=== PATIENT | male | born 1960 | race African-American/Black ===

== ENCOUNTER 2021-01-19 22:09 | Emergency (ER) | payer MEDICAID, OTHER ==
[~2021-01-19] VITALS: Ht 182.9 cm; Wt 82.0 kg
[2021-01-19] MEDS ORDERED: LEVETIRACETAM 1000MG PREMIX 100 ML IV ONE (22:30)
[2021-01-19 22:58] LABS: BASOPHILS % 0.7 % (0.0-2.0); EOSINOPHILS % 0.8 % (0.0-5.0); HEMATOCRIT. 38.3 % (42.0-52.0); HEMOGLOBIN. 12.9 g/dL (14.0-18.0); LYMPHOCYTES % 22.3 % (20.0-50.0); MEAN CORPUSCULAR HEMOGLOBIN 34.3 pg (28.0-32.0); MEAN CORPUSCULAR VOLUME 102.1 fL (80.0-94.0); MEAN PLATELET VOLUME 9.2 fl (7.4-10.4); MONOCYTES % 13.7 % (2.0-8.0); NEUTROPHILS % 62.5 % (40.0-76.0); PLATELET 88 x1000/uL (130-400); RED BLOOD CELL COUNT 3.75 mill/uL (4.7-6.1); RED CELL DISTRIBUTION WIDTH 18.6 % (11.6-14.6)
[2021-01-19 23:04] LABS: CHLORIDE 100 mEq/L (98-107)
[2021-01-19 23:08] LABS: ETHANOL BLOOD < 10 mg/dL
[2021-01-19 23:15] LABS: CLARITY URINE CLEAR (CLEAR); COLOR URINE DARK YELLOW (YELLOW); KETONES URINE 3+ (NEGATIVE); LEUKOCYTE ESTERASE URINE NEGATIVE (NEGATIVE); NITRITE URINE NEGATIVE (NEGATIVE); OCCULT BLOOD URINE TRACE (NEGATIVE); PH URINE 5.5 (4.5-8.0); PROTEIN URINE 1+ (NEGATIVE)
[2021-01-19 23:24] LABS: *AMPHETAMINES SCREEN URINE NEGATIVE (NEGATIVE); *BARBITURATES SCREEN URINE NEGATIVE (NEGATIVE)
[2021-01-19 23:25] LABS: *BENZODIAZEPINES SCREEN URINE NEGATIVE (NEGATIVE); *COCAINE SCREEN URINE NEGATIVE (NEGATIVE); CANNABINOID URINE SCREEN NEGATIVE (NEGATIVE); METHADONE URINE SCREEN NEGATIVE (NEGATIVE); OPIATES URINE SCREEN NEGATIVE (NEGATIVE); PHENCYCLIDINE URINE SCREEN NEGATIVE (NEGATIVE)
[2021-01-19] MEDS ORDERED: POTASSIUM CHLORIDE 20MEQ TABLET SR PO SCH (23:45)
[2021-01-20 02:00] VITALS: BP 120/94
[2021-01-20] MEDS ORDERED: KEPP500 MT ×2 (02:17→17:10)
== END 2021-01-20 03:49 | disposition home or self-care (01) ==
LOC: ER 22:09
DX: R56.9 Unspecified convulsions (principal); G93.40 Encephalopathy, unspecified; I10 Essential (primary) hypertension
CPT/HCPCS: 36415; 70450; 80053; 80305; 80320; 81003; 82962; 85025; 93005; 96365; 99285; J1953; G0480

== ENCOUNTER 2021-01-20 16:11 | Emergency (ER) | payer OTHER ==
[~2021-01-20] VITALS: Ht 193 cm; Wt 104.0 kg
[~2021-01-20 16:11] MED LIST: KEPP500 MT
[2021-01-20] MEDS ORDERED: KEPP500 MT (17:10)
[2021-01-20 17:21] VITALS: BP 120/78
== END 2021-01-20 17:22 | disposition home or self-care (01) ==
LOC: ER 16:11
DX: Z76.0 Encounter for issue of repeat prescription (principal); R56.9 Unspecified convulsions; I10 Essential (primary) hypertension
CPT/HCPCS: 99281; Z7610

== ENCOUNTER 2021-02-18 16:53 | Inpatient (IN) | payer OTHER, MEDICAID ==
[~2021-02-18] VITALS: Ht 193 cm; Wt 89.8 kg
[2021-02-18 17:57] LABS: HEMATOCRIT. 41.2 % (42.0-52.0); HEMOGLOBIN. 13.9 g/dL (14.0-18.0); MEAN CORPUSCULAR HEMOGLOBIN 36.2 pg (28.0-32.0); MEAN PLATELET VOLUME 9.2 fl (7.4-10.4); PLATELET 144 x1000/uL (130-400); RED BLOOD CELL COUNT 3.85 mill/uL (4.7-6.1); RED CELL DISTRIBUTION WIDTH 17.3 % (11.6-14.6)
[2021-02-18] MEDS ORDERED: MORPHINE SULFATE 4 MG/ML CPJ (NOT FOR IM USE) IV ONE ×2 (18:00→21:30)
[2021-02-18] MEDS ORDERED: ONDANSETRON HCL 4MG/2ML INJ IV ONE (18:00)
[2021-02-18 18:02] LABS: CHLORIDE 97 mEq/L (98-107)
[2021-02-18] MEDS ORDERED: SODIUM CHLORIDE 0.9% 500 ML IV ONE (18:15)
[2021-02-18 19:17] LABS: NUCLEATED RED BLOOD CELLS 1 /100 WBC; PLATELET ESTIMATE NORMAL
[2021-02-18 21:45] VITALS: BP 134/74
[2021-02-18 21:55] VITALS: BP 135/99
[2021-02-19] VITALS: BP 93/55
[2021-02-19] MEDS ORDERED: ONDANSETRON HCL 4MG/2ML INJ IV PRN
[2021-02-19] MEDS ORDERED: ACETAMINOPHEN 325MG TABLET PO PRN ×2
[2021-02-19] MEDS ORDERED: CLONIDINE 0.1MG TABLET PO PRN
[2021-02-19] MEDS ORDERED: DIPHENHYDRAMINE 50MG/ML VIAL IV PRN
[2021-02-19] MEDS: SODIUM CHLORIDE 0.9% 1,000 ML IV SCH ×3 (00:37→18:05)
[2021-02-19] MEDS ORDERED: LISI2.5T47 MT (01:47)
[2021-02-19 04:00] VITALS: BP 145/100
[2021-02-19 07:31] LABS: HEMATOCRIT. 39.1 % (42.0-52.0); HEMOGLOBIN. 13.6 g/dL (14.0-18.0); MEAN CORPUSCULAR HEMOGLOBIN 36.6 pg (28.0-32.0); MEAN CORPUSCULAR VOLUME 105.4 fL (80.0-94.0); MEAN PLATELET VOLUME 10.3 fl (7.4-10.4); PLATELET 123 x1000/uL (130-400); RED BLOOD CELL COUNT 3.71 mill/uL (4.7-6.1); RED CELL DISTRIBUTION WIDTH 16.6 % (11.6-14.6)
[2021-02-19 07:32] LABS: CHLORIDE 101 mEq/L (98-107)
[2021-02-19 08:00] VITALS: BP_SYST 135; BP_SYST 139; BP_DIAS 101; BP_DIAS 98
[2021-02-19] MEDS: PANTOPRAZOLE SODIUM 40 MG/VIAL IV SCH (09:49)
[2021-02-19] MEDS: LEVETIRACETAM 500MG PREMIX 100 ML IV SCH ×2 (09:49→20:57)
[2021-02-19 12:00] VITALS: BP 132/94
[2021-02-19] MEDS: MORPHINE SULFATE 4 MG/ML CPJ (NOT FOR IM USE) IV PRN ×2 (12:26→19:41)
[2021-02-19 15:44] LABS: NUCLEATED RED BLOOD CELLS 1 /100 WBC; PLATELET ESTIMATE SLIGHTLY DECREASED
[2021-02-19 16:00] VITALS: BP 131/95
[2021-02-19 20:00] VITALS: BP 118/73
[2021-02-20] VITALS (7 sets, daily range): BP systolic 108–135; BP diastolic 62–93
[2021-02-20] MEDS: SODIUM CHLORIDE 0.9% 1,000 ML IV SCH ×3 (04:23→20:16)
[2021-02-20 05:09] LABS: HEMATOCRIT. 37.1 % (42.0-52.0); HEMOGLOBIN. 12.4 g/dL (14.0-18.0); MEAN CORPUSCULAR HEMOGLOBIN 35.3 pg (28.0-32.0); MEAN CORPUSCULAR VOLUME 105.6 fL (80.0-94.0); MEAN PLATELET VOLUME 10.8 fl (7.4-10.4); PLATELET 117 x1000/uL (130-400); RED BLOOD CELL COUNT 3.51 mill/uL (4.7-6.1)
[2021-02-20 05:20] LABS: CHLORIDE 106 mEq/L (98-107)
[2021-02-20 05:26] LABS: AMYLASE 55 IU/L (25-115)
[2021-02-20 05:39] LABS: PHOSPHORUS 0.8 mg/dL (2.5-4.9)
[2021-02-20] MEDS: PANTOPRAZOLE SODIUM 40 MG/VIAL IV SCH (08:46)
[2021-02-20] MEDS: LEVETIRACETAM 500MG PREMIX 100 ML IV SCH ×2 (08:46→20:19)
[2021-02-20] MEDS: MORPHINE SULFATE 4 MG/ML CPJ (NOT FOR IM USE) IV PRN ×2 (08:52→19:51)
[2021-02-20] MEDS ORDERED: MAGNESIUM 2 G PREMIX 50 ML IV SCH (09:00)
[2021-02-20] MEDS ORDERED: POTASSIUM PHOS,M-BASIC-D-BASIC 30 MMOL in SODIUM CHLORIDE 0.9% 500 ML IV SCH (09:00)
[2021-02-20 14:58] LABS: PLATELET ESTIMATE SLIGHTLY DECREASED
== END 2021-02-20 22:18 | disposition short-term general hospital (02) | DRG 391 ==
LOC: ER 16:53 → ENRESERV 20:02 → 8WST 22:12
PROVIDERS: ADMIT Internal Medicine; ATTEND Internal Medicine
DX: K52.9 Noninfective gastroenteritis and colitis, unspecified (principal); K85.90 Acute pancreatitis without necrosis or infection, unspecified; I42.9 Cardiomyopathy, unspecified; I30.9 Acute pericarditis, unspecified; R07.89 Other chest pain; K29.80 Duodenitis without bleeding; I10 Essential (primary) hypertension; I48.91 Unspecified atrial fibrillation; G40.909 Epilepsy, unspecified, not intractable, without status epilepticus; I25.10 Atherosclerotic heart disease of native coronary artery without angina pectoris; K76.0 Fatty (change of) liver, not elsewhere classified; K75.9 Inflammatory liver disease, unspecified; D53.9 Nutritional anemia, unspecified; D69.6 Thrombocytopenia, unspecified; E83.39 Other disorders of phosphorus metabolism; E83.42 Hypomagnesemia; E87.6 Hypokalemia; Z79.899 Other long term (current) drug therapy; Z87.891 Personal history of nicotine dependence
CPT/HCPCS: 36415; 71045; 71260; 74177; 76705; 80048; 80053; 80076; 82150; 82248; 83036; 83735; 83880; 84100; 84484; 85025; 93005; 93306; 93970; 99285; C9113; J1953; J2270; J2405; J3475; J3490; J7030; J7040

== ENCOUNTER 2022-04-07 08:17 | Inpatient (IN) | payer MEDICARE, MEDICAID ==
[~2022-04-07] VITALS: Ht 193 cm; Wt 103.4 kg
[~2022-04-07 08:17] MED LIST changes: +LISI2.5T47 MT
[2022-04-07 09:03] LABS: HEMATOCRIT. 44.4 % (42.0-52.0); HEMOGLOBIN. 14.6 g/dL (14.0-18.0); MEAN CORPUSCULAR VOLUME 103.5 fL (80.0-94.0); MEAN PLATELET VOLUME 9.3 fl (7.4-10.4); PLATELET 70 x1000/uL (130-400); RED BLOOD CELL COUNT 4.29 mill/uL (4.7-6.1); RED CELL DISTRIBUTION WIDTH 16.4 % (11.6-14.6)
[2022-04-07 09:05] LABS: CHLORIDE 94 mEq/L (98-107)
[2022-04-07 09:16] LABS: ETHANOL BLOOD < 10 mg/dL
[2022-04-07] MEDS ORDERED: MORPHINE SULFATE 4 MG/ML CPJ (NOT FOR IM USE) IV STA (09:21)
[2022-04-07] MEDS ORDERED: ONDANSETRON HCL 4MG/2ML INJ IV STA (09:21)
[2022-04-07] MEDS ORDERED: AMIODARONE HCL 150 MG in DEXT 5% WATER 97 ML IV ONE (09:30)
[2022-04-07] MEDS ORDERED: ASPIRIN 81MG TABLET PO ONE (09:30)
[2022-04-07] MEDS ORDERED: NITROGLYCERIN OINT 1GM/INCH UDPKT TD ONE (09:30)
[2022-04-07 10:26] LABS: BG BASE EXCESS -12.6 mmol/L (-2.0-2.0); BG CARBOXYHEMOGLOBIN 1.1 % (0.5-1.5); BG DEOXYHEMOGLOBIN 2.6 % (0.0-5.0); BG FRACTION INSPIRED OXYGEN 21; BG HCO3 ACT 11.3 mmol/L (22.0-26.0); BG METHEMOGLOBIN 0.3 % (0.0-1.5); BG OXYGEN SATURATION 97.4 % (92.0-98.5); BG PCO2 22.6 mmHg (35.0-45.0); BG PH 7.317 (7.350-7.450); BG PO2 91.4 mmHg (75.0-100.0); BG SAMPLE SITE RIGHT RADIAL; BG TOTAL HEMOGLOBIN 14.7 g/dL (12.0-18.0); BG VENT MODE ROOM AIR
[2022-04-07 10:36] LABS: NUCLEATED RED BLOOD CELLS 1 /100 WBC; PLATELET ESTIMATE DECREASED
[2022-04-07] MEDS: METOPROLOL TARTRATE 25MG TABLET PO SCH ×2 (14:08→21:56)
[2022-04-07] MEDS ORDERED: NALOXONE HCL 0.4MG/ML VIAL IV PRN (14:15)
[2022-04-07] MEDS ORDERED: AMIODARONE HCL 900 MG in DEXT 5% WATER 482 ML IV SCH (14:30)
[2022-04-07] MEDS ORDERED: DILTIAZEM HCL 5MG/ML 5ML VIAL IV NR (14:30)
[2022-04-07] MEDS: AMIODARONE HCL 900 MG in DEXT 5% WATER 482 ML IV SCH (15:25)
[2022-04-07 16:19] VITALS: BP 153/84
[2022-04-07 16:22] VITALS: BP 153/84
[2022-04-07] MEDS ORDERED: *PATIENT'S OWN MEDICATION STORAGE XX SCH (16:30)
[2022-04-07] MEDS: DIGOXIN 500MCG/2ML AMP IV PRN (16:35)
[2022-04-07] MEDS ORDERED: BISO10TA11 PO (16:42)
[2022-04-07] MEDS ORDERED: AMI2 PO (16:44)
[2022-04-07] MEDS ORDERED: CEFTRIAXONE 1 G PREMIX 50 ML IV SCH (16:45)
[2022-04-07] MEDS ORDERED: LORAZEPAM 1MG TABLET PO PRN (16:45)
[2022-04-07] MEDS ORDERED: ENOXAPARIN 40MG/0.4ML SYR SUBCUT SCH (17:15)
[2022-04-07 18:00] VITALS: BP 119/80
[2022-04-07 20:08] VITALS: BP 117/74
[2022-04-07] MEDS: CHLORDIAZEPOXIDE 25MG CAPSULE PO SCH (21:56)
[2022-04-07] MEDS: HYDROCODONE/ACETAMINOPHEN 10/325MG TABLET PO PRN (22:01)
[2022-04-07 22:08] VITALS: BP 108/71
[2022-04-07] MEDS: CEFTRIAXONE 1,000 MG in DEXTROSE 5% WATER 50 ML IV SCH (22:16)
[2022-04-07 23:53] LABS: CLARITY URINE CLEAR (CLEAR); COLOR URINE DARK YELLOW (YELLOW); KETONES URINE 4+ (NEGATIVE); LEUKOCYTE ESTERASE URINE NEGATIVE (NEGATIVE); NITRITE URINE NEGATIVE (NEGATIVE); OCCULT BLOOD URINE 1+ (NEGATIVE); PH URINE 5.5 (4.5-8.0); PROTEIN URINE 2+ (NEGATIVE); SPECIFIC GRAVITY URINE 1.021 (1.005-1.030)
[2022-04-08] VITALS (13 sets, daily range): BP systolic 101–157; BP diastolic 59–99
[2022-04-08 00:08] LABS: *AMPHETAMINES SCREEN URINE NEGATIVE (NEGATIVE); *BARBITURATES SCREEN URINE NEGATIVE (NEGATIVE); *BENZODIAZEPINES SCREEN URINE NEGATIVE (NEGATIVE); *COCAINE SCREEN URINE NEGATIVE (NEGATIVE); CANNABINOID URINE SCREEN NEGATIVE (NEGATIVE); METHADONE URINE SCREEN NEGATIVE (NEGATIVE); OPIATES URINE SCREEN PRESUMTIVE POSITIVE (NEGATIVE); PHENCYCLIDINE URINE SCREEN NEGATIVE (NEGATIVE)
[2022-04-08] MEDS: CHLORDIAZEPOXIDE 25MG CAPSULE PO SCH ×3 (05:25→22:24)
[2022-04-08 05:59] LABS: BASOPHILS % 0.2 % (0.0-2.0); EOSINOPHILS % 0.2 % (0.0-5.0); HEMATOCRIT. 44.9 % (42.0-52.0); HEMOGLOBIN. 15.1 g/dL (14.0-18.0); LYMPHOCYTES % 8.1 % (20.0-50.0); MEAN CORPUSCULAR VOLUME 101.4 fL (80.0-94.0); MEAN PLATELET VOLUME 10.4 fl (7.4-10.4); MONOCYTES % 13.6 % (2.0-8.0); NEUTROPHILS % 77.9 % (40.0-76.0); PLATELET 61 x1000/uL (130-400); RED BLOOD CELL COUNT 4.43 mill/uL (4.7-6.1); RED CELL DISTRIBUTION WIDTH 16.3 % (11.6-14.6)
[2022-04-08 06:23] LABS: CHLORIDE 95 mEq/L (98-107)
[2022-04-08] MEDS: METOPROLOL TARTRATE 25MG TABLET PO SCH (08:01)
[2022-04-08] MEDS: ASPIRIN 81MG TABLET PO SCH (08:01)
[2022-04-08] MEDS: SODIUM CHLORIDE 0.9% 1,000 ML IV SCH ×2 (11:15→18:06)
[2022-04-08] MEDS ORDERED: SODIUM CHLORIDE 0.9% 1000ML BAG (SEPSIS BOLUS) IV NR (12:30)
[2022-04-08] MEDS ORDERED: DILTIAZEM HCL 5MG/ML 5ML VIAL IV NR (12:30)
[2022-04-08] MEDS: AMIODARONE HCL 900 MG in DEXT 5% WATER 482 ML IV SCH (13:21)
[2022-04-08] MEDS: CEFTRIAXONE 1,000 MG in DEXTROSE 5% WATER 50 ML IV SCH (17:59)
[2022-04-08] MEDS: DILTIAZEM HCL 60MG TABLET PO SCH ×2 (17:59→22:31)
[2022-04-08] MEDS: FAMOTIDINE 20MG TABLET PO SCH (20:23)
[2022-04-08] MEDS: HYDROCODONE/ACETAMINOPHEN 10/325MG TABLET PO PRN (20:24)
[2022-04-09] VITALS (13 sets, daily range): BP systolic 90–129; BP diastolic 56–107
[2022-04-09] MEDS: SODIUM CHLORIDE 0.9% 1,000 ML IV SCH (05:15)
[2022-04-09] MEDS: DILTIAZEM HCL 60MG TABLET PO SCH (05:30)
[2022-04-09] MEDS: CHLORDIAZEPOXIDE 25MG CAPSULE PO SCH ×3 (05:30→21:21)
[2022-04-09 06:00] LABS: CHLORIDE 98 mEq/L (98-107)
[2022-04-09 06:01] LABS: BASOPHILS % 0.2 % (0.0-2.0); EOSINOPHILS % 0.5 % (0.0-5.0); HEMATOCRIT. 43.3 % (42.0-52.0); HEMOGLOBIN. 14.5 g/dL (14.0-18.0); LYMPHOCYTES % 15.6 % (20.0-50.0); MEAN CORPUSCULAR HEMOGLOBIN 33.9 pg (28.0-32.0); MEAN CORPUSCULAR VOLUME 101.4 fL (80.0-94.0); MEAN PLATELET VOLUME 10.7 fl (7.4-10.4); MONOCYTES % 13.9 % (2.0-8.0); NEUTROPHILS % 69.8 % (40.0-76.0); PLATELET 59 x1000/uL (130-400); RED BLOOD CELL COUNT 4.27 mill/uL (4.7-6.1); RED CELL DISTRIBUTION WIDTH 16.4 % (11.6-14.6)
[2022-04-09] MEDS: ASPIRIN 81MG TABLET PO SCH (08:56)
[2022-04-09] MEDS ORDERED: AMIODARONE HCL 50MG/ML 3ML VIAL IV ONE (11:15)
[2022-04-09] MEDS ORDERED: POTASSIUM CHLORIDE 20MEQ TABLET SR PO NR (11:30)
[2022-04-09] MEDS: METOPROLOL TARTRATE 50MG TABLET PO SCH ×2 (11:54→21:00)
[2022-04-09] MEDS ORDERED: SODIUM CHLORIDE 0.9% 1,000 ML IV ONE (12:00)
[2022-04-09] MEDS ORDERED: AMIODARONE HCL 150 MG in DEXT 5% WATER 100 ML IV NR (12:30)
[2022-04-09] MEDS: CHLORPROMAZINE HCL 25 MG TABLET PO PRN (13:16)
[2022-04-09] MEDS: AMIODARONE HCL 200 MG TABLET PO SCH ×2 (13:16→18:01)
[2022-04-09] MEDS: AMIODARONE HCL 900 MG in DEXT 5% WATER 482 ML IV SCH (16:19)
[2022-04-09] MEDS: CEFTRIAXONE 1,000 MG in DEXTROSE 5% WATER 50 ML IV SCH (18:01)
[2022-04-09] MEDS: FAMOTIDINE 20MG TABLET PO SCH (21:21)
[2022-04-10] VITALS (16 sets, daily range): BP systolic 76–141; BP diastolic 24–80
[2022-04-10] MEDS: DIGOXIN 500MCG/2ML AMP IV PRN ×2 (00:54→19:24)
[2022-04-10] MEDS: SODIUM CHLORIDE 0.9% 1,000 ML IV SCH ×3 (03:30→23:31)
[2022-04-10] MEDS: HYDROCODONE/ACETAMINOPHEN 10/325MG TABLET PO PRN (03:58)
[2022-04-10] MEDS ORDERED: METOPROLOL TARTRATE 5MG/5ML VIAL IV NR (04:30)
[2022-04-10] MEDS: CHLORDIAZEPOXIDE 25MG CAPSULE PO SCH ×3 (05:22→21:26)
[2022-04-10 07:15] LABS: CHLORIDE 103 mEq/L (98-107)
[2022-04-10 08:20] LABS: BASOPHILS % 0.5 % (0.0-2.0); EOSINOPHILS % 0.5 % (0.0-5.0); HEMATOCRIT. 38.9 % (42.0-52.0); LYMPHOCYTES % 19.6 % (20.0-50.0); MEAN CORPUSCULAR VOLUME 101.8 fL (80.0-94.0); MEAN PLATELET VOLUME 11.6 fl (7.4-10.4); MONOCYTES % 13.8 % (2.0-8.0); NEUTROPHILS % 65.6 % (40.0-76.0); PLATELET 75 x1000/uL (130-400); RED BLOOD CELL COUNT 3.82 mill/uL (4.7-6.1); RED CELL DISTRIBUTION WIDTH 16.2 % (11.6-14.6)
[2022-04-10] MEDS: AMIODARONE HCL 200 MG TABLET PO SCH ×3 (08:25→17:45)
[2022-04-10] MEDS: METOPROLOL TARTRATE 50MG TABLET PO SCH ×2 (08:25→21:26)
[2022-04-10] MEDS ORDERED: DIGOXIN 500MCG/2ML AMP IV NR (09:15)
[2022-04-10] MEDS: CEFTRIAXONE 1,000 MG in DEXTROSE 5% WATER 50 ML IV SCH (17:45)
[2022-04-10] MEDS: DIGOXIN 500MCG/2ML AMP IV SCH (17:45)
[2022-04-10] MEDS: FAMOTIDINE 20MG TABLET PO SCH (21:26)
[2022-04-11] VITALS (8 sets, daily range): BP systolic 97–167; BP diastolic 55–96
[2022-04-11] MEDS: CHLORDIAZEPOXIDE 25MG CAPSULE PO SCH ×2 (05:13→14:17)
[2022-04-11 06:06] LABS: CHLORIDE 101 mEq/L (98-107)
[2022-04-11 06:24] LABS: HEMATOCRIT. 35.3 % (42.0-52.0); HEMOGLOBIN. 11.8 g/dL (14.0-18.0); MEAN CORPUSCULAR HEMOGLOBIN 34.1 pg (28.0-32.0); MEAN PLATELET VOLUME 11.1 fl (7.4-10.4); PLATELET 100 x1000/uL (130-400); RED BLOOD CELL COUNT 3.46 mill/uL (4.7-6.1); RED CELL DISTRIBUTION WIDTH 16.4 % (11.6-14.6)
[2022-04-11 06:30] LABS: DIGOXIN 1.2 ng/mL (0.9-2.0)
[2022-04-11] MEDS: METOPROLOL TARTRATE 50MG TABLET PO SCH (08:39)
[2022-04-11] MEDS: AMIODARONE HCL 200 MG TABLET PO SCH (08:39)
[2022-04-11] MEDS ORDERED: POTASSIUM CHLORIDE 20MEQ TABLET SR PO NR (09:45)
[2022-04-11] MEDS ORDERED: METO-539 PO (13:24)
[2022-04-11] MEDS: CHLORPROMAZINE HCL 25 MG TABLET PO PRN ×2 (14:12→14:15)
[2022-04-11] MEDS: DIGOXIN 500MCG/2ML AMP IV SCH (18:00)
[2022-04-11] MEDS: CEFTRIAXONE 1,000 MG in DEXTROSE 5% WATER 50 ML IV SCH (18:00)
[2022-04-11] MEDS ORDERED: METOPROLOL TARTRATE 50MG TABLET PO SCH (21:00)
[2022-04-12 02:24] LABS: PLATELET ESTIMATE DECREASED
== END 2022-04-11 18:25 | disposition home or self-care (01) | DRG 308 ==
LOC: ER 08:29 → ENRESERV 14:18 → 5EST 16:00
PROVIDERS: ADMIT Internal Medicine; ATTEND Internal Medicine
DX: I48.0 Paroxysmal atrial fibrillation (principal); K85.90 Acute pancreatitis without necrosis or infection, unspecified; N17.0 Acute kidney failure with tubular necrosis; E87.1 Hypo-osmolality and hyponatremia; I47.1 Supraventricular tachycardia; D69.6 Thrombocytopenia, unspecified; D72.825 Bandemia; E87.8 Other disorders of electrolyte and fluid balance, not elsewhere classified; R74.01 Elevation of levels of liver transaminase levels; I11.9 Hypertensive heart disease without heart failure; F10.10 Alcohol abuse, uncomplicated; E78.5 Hyperlipidemia, unspecified; R07.89 Other chest pain; T46.5X6A Underdosing of other antihypertensive drugs, initial encounter; Y92.89 Other specified places as the place of occurrence of the external cause; Z91.14 Patient's other noncompliance with medication regimen; Z82.49 Family history of ischemic heart disease and other diseases of the circulatory system; Z79.899 Other long term (current) drug therapy; Z71.41 Alcohol abuse counseling and surveillance of alcoholic
CPT/HCPCS: 36415; 36600; 71045; 76700; 80048; 80053; 80162; 80305; 80320; 81003; 82375; 82805; 82962; 83880; 84145; 84484; 85025; 93005; 93306; 99291; J0282; J0696; J1160; J2270; J2405; J3490; J7030; J7060; Q0161; G0480

== ENCOUNTER 2022-04-15 10:44 | Emergency (ER) | payer MEDICARE, MEDICAID ==
[~2022-04-15] VITALS: Ht 162.6 cm; Wt 104.0 kg
[~2022-04-15 10:44] MED LIST changes: +AMI2 PO; +METO-539 PO
[2022-04-15] MEDS ORDERED: CLIN-194 MT (11:35)
[2022-04-15] MEDS ORDERED: ACET-3163 MT (11:36)
[2022-04-15 11:59] VITALS: BP 134/73
== END 2022-04-15 12:00 | disposition home or self-care (01) ==
LOC: ER 10:57
DX: L03.114 Cellulitis of left upper limb (principal); L03.113 Cellulitis of right upper limb; I48.91 Unspecified atrial fibrillation; I10 Essential (primary) hypertension; Z87.19 Personal history of other diseases of the digestive system; Z98.890 Other specified postprocedural states
CPT/HCPCS: 99283

== ENCOUNTER → 2022-06-20 | Outpatient (CLI) | payer MEDICARE, MEDICAID ==
[~2022-06-20] MED LIST changes: +ACET-3163 MT; +CLIN-194 MT; +REGADENOSON 0.4 MG/5 ML IV ONE
== END | disposition home or self-care (01) ==
LOC: NM 07:38
PROVIDERS: ATTEND Internal Medicine
DX: I11.9 Hypertensive heart disease without heart failure (principal); R07.89 Other chest pain; R06.00 Dyspnea, unspecified
CPT/HCPCS: 78452; 93017; A9500; J2785

== ENCOUNTER 2022-09-20 10:35 | Inpatient (IN) | payer MEDICARE, MEDICAID ==
[~2022-09-20] VITALS: Ht 193 cm; Wt 96.2 kg
[~2022-09-20 10:35] MED LIST changes: -REGADENOSON 0.4 MG/5 ML IV ONE
[2022-09-20] MEDS ORDERED: ACETAMINOPHEN 325MG TABLET PO STA (11:14)
[2022-09-20] MEDS ORDERED: SODIUM CHLORIDE 0.9% 1,000 ML IV ONE (11:15)
[2022-09-20 12:10] LABS: HEMATOCRIT. 40.1 % (42.0-52.0); HEMOGLOBIN. 13.5 g/dL (14.0-18.0); MEAN CORPUSCULAR HEMOGLOBIN 35.7 pg (28.0-32.0); MEAN CORPUSCULAR VOLUME 106.1 fL (80.0-94.0); RED BLOOD CELL COUNT 3.78 mill/uL (4.7-6.1); RED CELL DISTRIBUTION WIDTH 18.3 % (11.6-14.6)
[2022-09-20 12:11] LABS: CHLORIDE 96 mEq/L (98-107)
[2022-09-20 12:17] LABS: PLATELET 43 x1000/uL (130-400)
[2022-09-20 12:37] LABS: PLATELET ESTIMATE MARKEDLY DECREASED
[2022-09-20] MEDS ORDERED: POTASSIUM CHLORIDE INJ 40 MEQ in DEXT 5% WATER 250 ML IV ONE (12:45)
[2022-09-20] MEDS ORDERED: VANCOMYCIN 1G PREMIX 200 ML IV ONE (12:45)
[2022-09-20] MEDS ORDERED: PIPERACILLIN/TAZ 3.375G PREMIX 50 ML IV ONE (12:45)
[2022-09-20] MEDS ORDERED: POTASSIUM CHLORIDE 20MEQ TABLET SR PO ONE (12:45)
[2022-09-20 20:53] VITALS: BP 152/95
[2022-09-20 23:50] VITALS: BP 150/98
[2022-09-21] VITALS (15 sets, daily range): BP systolic 102–137; BP diastolic 60–94
[2022-09-21] MEDS ORDERED: HYDROCODONE/ACETAMINOPHEN 5/325MG TABLET PO PRN (02:45)
[2022-09-21] MEDS: METOPROLOL TARTRATE 50MG TABLET PO SCH ×3 (03:47→21:00)
[2022-09-21] MEDS ORDERED: APIXABAN 5 MG TABLET PO SCH (09:00)
[2022-09-21 12:10] LABS: BASOPHILS % 0.5 % (0.0-2.0); EOSINOPHILS % 0.8 % (0.0-5.0); HEMATOCRIT. 34.7 % (42.0-52.0); HEMOGLOBIN. 11.8 g/dL (14.0-18.0); LYMPHOCYTES % 15.8 % (20.0-50.0); MEAN CORPUSCULAR HEMOGLOBIN 35.6 pg (28.0-32.0); MEAN CORPUSCULAR VOLUME 104.7 fL (80.0-94.0); MEAN PLATELET VOLUME 11.1 fl (7.4-10.4); MONOCYTES % 9.3 % (2.0-8.0); NEUTROPHILS % 73.6 % (40.0-76.0); RED BLOOD CELL COUNT 3.31 mill/uL (4.7-6.1); RED CELL DISTRIBUTION WIDTH 18.2 % (11.6-14.6)
[2022-09-21] MEDS ORDERED: NALOXONE HCL 0.4MG/ML VIAL IV PRN (12:15)
[2022-09-21 12:37] LABS: PLATELET 40 x1000/uL (130-400)
[2022-09-21 12:59] LABS: CHLORIDE 97 mEq/L (98-107)
[2022-09-21 13:16] LABS: ETHANOL BLOOD < 10 mg/dL
[2022-09-21 13:39] LABS: PLATELET ESTIMATE MARKEDLY DECREASED
[2022-09-21] MEDS ORDERED: LORAZEPAM 2MG/ML CPJ IV PRN (17:30)
[2022-09-21] MEDS ORDERED: POTASSIUM CHLORIDE 20MEQ TABLET SR PO NR (17:30)
[2022-09-21 17:59] LABS: CLARITY URINE CLEAR (CLEAR); COLOR URINE ORANGE (YELLOW); KETONES URINE 2+ (NEGATIVE); LEUKOCYTE ESTERASE URINE 1+ (NEGATIVE); NITRITE URINE POSITIVE (NEGATIVE); OCCULT BLOOD URINE NEGATIVE (NEGATIVE); PROTEIN URINE 1+ (NEGATIVE); SPECIFIC GRAVITY URINE 1.025 (1.005-1.030)
[2022-09-21 18:10] LABS: *AMPHETAMINES SCREEN URINE NEGATIVE (NEGATIVE); *BARBITURATES SCREEN URINE NEGATIVE (NEGATIVE); *BENZODIAZEPINES SCREEN URINE NEGATIVE (NEGATIVE); *COCAINE SCREEN URINE NEGATIVE (NEGATIVE); CANNABINOID URINE SCREEN NEGATIVE (NEGATIVE); METHADONE URINE SCREEN NEGATIVE (NEGATIVE); OPIATES URINE SCREEN NEGATIVE (NEGATIVE); PHENCYCLIDINE URINE SCREEN NEGATIVE (NEGATIVE)
[2022-09-21] MEDS ORDERED: INFLUENZA VACCINE 05/PF 0.5 ML SYRINGE IM ONE (21:00)
[2022-09-21] MEDS: THIORIDAZINE HCL 25MG TABLET PO SCH (21:30)
[2022-09-22] VITALS (7 sets, daily range): BP systolic 96–118; BP diastolic 66–73
[2022-09-22] MEDS: THIORIDAZINE HCL 25MG TABLET PO SCH ×3 (06:57→21:39)
[2022-09-22] MEDS: METOPROLOL TARTRATE 50MG TABLET PO SCH ×2 (09:16→21:00)
[2022-09-22] MEDS ORDERED: LEVO-65 MT (11:22)
[2022-09-22] MEDS ORDERED: METO-539 PO ×2 (11:22)
[2022-09-22] MEDS ORDERED: CEFTRIAXONE 1 G PREMIX 50 ML IV SCH (11:30)
[2022-09-22] MEDS: CEFTRIAXONE 1,000 MG in DEXTROSE 5% WATER 50 ML IV SCH (13:16)
[2022-09-22] MEDS: MIDODRINE HCL 5MG TABLET PO SCH (18:37)
[2022-09-23] VITALS: BP 109/60
[2022-09-23 04:00] VITALS: BP 93/55
[2022-09-23] MEDS: THIORIDAZINE HCL 25MG TABLET PO SCH ×3 (06:08→21:59)
[2022-09-23 08:00] VITALS: BP 98/57
[2022-09-23] MEDS: MIDODRINE HCL 5MG TABLET PO SCH ×3 (08:28→17:34)
[2022-09-23] MEDS: METOPROLOL TARTRATE 50MG TABLET PO SCH (08:29)
[2022-09-23] MEDS ORDERED: MIDODRINE HCL 5MG TABLET PO NR (11:00)
[2022-09-23 12:00] VITALS: BP 100/58
[2022-09-23] MEDS: CEFTRIAXONE 1,000 MG in DEXTROSE 5% WATER 50 ML IV SCH (12:05)
[2022-09-23 16:00] VITALS: BP 116/71
[2022-09-23] MEDS: FLUDROCORTISONE ACETATE 0.1MG TABLET PO SCH (17:34)
[2022-09-23] MEDS: SODIUM CHLORIDE 0.45% 1,000 ML IV SCH (17:34)
[2022-09-23 20:00] VITALS: BP 134/74
[2022-09-24] VITALS: BP 100/56
[2022-09-24 04:00] VITALS: BP 129/75
[2022-09-24] MEDS: THIORIDAZINE HCL 25MG TABLET PO SCH (06:00)
[2022-09-24] MEDS: SODIUM CHLORIDE 0.45% 1,000 ML IV SCH (06:33)
[2022-09-24 08:00] VITALS: BP 128/84
[2022-09-24] MEDS: FLUDROCORTISONE ACETATE 0.1MG TABLET PO SCH (08:52)
[2022-09-24] MEDS: MIDODRINE HCL 5MG TABLET PO SCH ×2 (08:52→12:47)
[2022-09-24] MEDS ORDERED: MIDO10TA MT (11:49)
[2022-09-24] MEDS ORDERED: TAMS-11 MT (11:49)
[2022-09-24 12:00] VITALS: BP 129/77
== END 2022-09-24 13:10 | disposition home or self-care (01) | DRG 308 ==
LOC: ER 10:35 → 3WST 13:51 → EDBEDREQ 13:55 → EDBEDREQTM 13:55
PROVIDERS: ADMIT Internal Medicine; ATTEND Internal Medicine
DX: I48.0 Paroxysmal atrial fibrillation (principal); K85.90 Acute pancreatitis without necrosis or infection, unspecified; E87.1 Hypo-osmolality and hyponatremia; N39.0 Urinary tract infection, site not specified; I50.22 Chronic systolic (congestive) heart failure; I11.0 Hypertensive heart disease with heart failure; I47.1 Supraventricular tachycardia; D69.6 Thrombocytopenia, unspecified; F10.10 Alcohol abuse, uncomplicated; E87.6 Hypokalemia; Z20.822 Contact with and (suspected) exposure to COVID-19; R74.01 Elevation of levels of liver transaminase levels; I95.1 Orthostatic hypotension
CPT/HCPCS: 36415; 71045; 74176; 80048; 80053; 80305; 80320; 81003; 83605; 83880; 84145; 84443; 84484; 85025; 87426; 87804; 90686; 93005; 93306; 99291; C9803; J0696; J2543; J3370; J3480; J7030; J7060; G0480

== ENCOUNTER 2022-10-08 18:35 | Inpatient (IN) | payer MEDICARE, MEDICAID ==
[~2022-10-08] VITALS: Ht 193 cm; Wt 99.8 kg
[~2022-10-08 18:35] MED LIST changes: -CLIN-194 MT; +ETOMIDATE 2MG/ML 10ML VIAL IV ONE; +LEVO-65 MT; -LISI2.5T47 MT; -METO-539 PO; +MIDO10TA MT; +SUCCINYLCHOLINE CHLORIDE 200MG/10ML IV ONE; +TAMS-11 MT
[2022-10-08] MEDS ORDERED: IPRATROPIUM BROMIDE (0.02%) 0.5MG/2.5ML NEB HHN STA (19:01)
[2022-10-08] MEDS ORDERED: ALBUTEROL (0.083%) 2.5MG/3ML NEB HHN STA (19:01)
[2022-10-08] MEDS ORDERED: MIDAZOLAM HCL 100 MG in DEXT 5% WATER 80 ML IV ONE (19:15)
[2022-10-08] MEDS ORDERED: SUCCINYLCHOLINE CHLORIDE 200MG/10ML IV ONE (19:15)
[2022-10-08] MEDS ORDERED: MIDAZOLAM HCL 100 MG in SODIUM CHLORIDE 0.9% 100 ML IV PRN (19:15)
[2022-10-08] MEDS ORDERED: ETOMIDATE 2MG/ML 10ML VIAL IV ONE (19:15)
[2022-10-08] MEDS ORDERED: PROPOFOL 10MG/ML 100ML 100 ML IV ONE (19:15)
[2022-10-08 20:06] LABS: BG BASE EXCESS -7.5 mmol/L (-2.0-2.0); BG DEOXYHEMOGLOBIN 0.3 % (0.0-5.0); BG FRACTION INSPIRED OXYGEN 100; BG METHEMOGLOBIN 0.3 % (0.0-1.5); BG OXYGEN SATURATION 99.7 % (92.0-98.5); BG OXYHEMOGLOBIN 98.4 % (94.0-97.0); BG PCO2 42.1 mmHg (35.0-45.0); BG PH 7.272 (7.350-7.450); BG PO2 378.4 mmHg (75.0-100.0); BG SAMPLE SITE LEFT RADIAL; BG TOTAL HEMOGLOBIN 11.2 g/dL (12.0-18.0); BG TOTAL RESPIRATORY RATE 25 b/min; BG VENT MODE VENT - AC
[2022-10-08] MEDS: MIDAZOLAM HCL 2 MG/2 ML VIAL IV ONE ×2 (20:55→21:10)
[2022-10-08] MEDS ORDERED: FENTANYL 2500MCG/250ML PMX 250 ML IV ONE (21:15)
[2022-10-08 22:06] LABS: BASOPHILS % 0.5 % (0.0-2.0); EOSINOPHILS % 0.1 % (0.0-5.0); HEMATOCRIT. 30.8 % (42.0-52.0); HEMOGLOBIN. 10.1 g/dL (14.0-18.0); LYMPHOCYTES % 11.8 % (20.0-50.0); MEAN CORPUSCULAR HEMOGLOBIN 35.2 pg (28.0-32.0); MEAN CORPUSCULAR VOLUME 106.8 fL (80.0-94.0); MEAN PLATELET VOLUME 8.4 fl (7.4-10.4); MONOCYTES % 8.8 % (2.0-8.0); NEUTROPHILS % 78.8 % (40.0-76.0); PLATELET 185 x1000/uL (130-400); RED BLOOD CELL COUNT 2.88 mill/uL (4.7-6.1); RED CELL DISTRIBUTION WIDTH 20.6 % (11.6-14.6)
[2022-10-08 22:07] LABS: CHLORIDE 112 mEq/L (98-107)
[2022-10-08 22:19] LABS: ETHANOL BLOOD 276 mg/dL
[2022-10-08 22:20] LABS: D-DIMER 5.71 mg/L FEU (<0.50); INR 1.1; PARTIAL THROMBOPLASTIN TIME 25.4 sec (23.4-31.0); PROTHROMBIN TIME 11.8 sec (9.6-11.0)
[2022-10-08] MEDS ORDERED: PIPERACILLIN/TAZOBACTAM 3.375GM/50ML PREMIX IV ONE (22:30)
[2022-10-08] MEDS ORDERED: PIPERACILLIN/TAZ 3.375G PREMIX 50 ML IV NR (22:30)
[2022-10-08] MEDS ORDERED: IOHEXOL-300 100 ML BOTTLE ONE (22:51)
[2022-10-08] MEDS ORDERED: KCL 10MEQ/50ML PREMIX 50 ML IV ONE (23:15)
[2022-10-09] VITALS (40 sets, daily range): BP systolic 101–164; BP diastolic 47–103
[2022-10-09] MEDS ORDERED: PROPOFOL 10MG/ML 100ML 100 ML IV NR (00:30)
[2022-10-09] MEDS ORDERED: SODIUM BICARBONATE 8.4% 1 MEQ/ML 50ML SYR IV NR (01:30)
[2022-10-09] MEDS ORDERED: FENTANYL 2500MCG/250ML PMX 250 ML IV PRN (01:30)
[2022-10-09] MEDS ORDERED: MIDAZOLAM 100MG/100ML PMX 100 ML IV PRN (01:30)
[2022-10-09] MEDS ORDERED: FOLIC ACID 1 MG, THIAMINE HCL 100 MG, MVI, ADULT NO.1 10 ML in DEXTROSE 5% WATER 1,000 ML IV ONE ×4 (01:45)
[2022-10-09] MEDS ORDERED: ONDANSETRON HCL 4MG/2ML INJ IV PRN (01:45)
[2022-10-09 05:42] LABS: BASOPHILS % 0.8 % (0.0-2.0); EOSINOPHILS % 0.4 % (0.0-5.0); HEMATOCRIT. 29.6 % (42.0-52.0); HEMOGLOBIN. 9.9 g/dL (14.0-18.0); LYMPHOCYTES % 22.5 % (20.0-50.0); MEAN CORPUSCULAR HEMOGLOBIN 35.7 pg (28.0-32.0); MEAN CORPUSCULAR VOLUME 106.4 fL (80.0-94.0); MEAN PLATELET VOLUME 8.6 fl (7.4-10.4); MONOCYTES % 11.4 % (2.0-8.0); NEUTROPHILS % 64.9 % (40.0-76.0); PLATELET 165 x1000/uL (130-400); RED BLOOD CELL COUNT 2.78 mill/uL (4.7-6.1); RED CELL DISTRIBUTION WIDTH 20.6 % (11.6-14.6)
[2022-10-09] MEDS: PIPERACILLIN/TAZOBACTAM 3.375 G in DEXTROSE 5% WATER 50 ML IV SCH ×3 (06:00→22:07)
[2022-10-09 06:06] LABS: CHLORIDE 111 mEq/L (98-107)
[2022-10-09] MEDS ORDERED: POTASSIUM CHLORIDE INJ 40 MEQ in DEXT 5% WATER 250 ML IV ONE (07:00)
[2022-10-09 09:12] LABS: BG BASE EXCESS 2.6 mmol/L (-2.0-2.0); BG CARBOXYHEMOGLOBIN 0.3 % (0.5-1.5); BG DEOXYHEMOGLOBIN 3.6 % (0.0-5.0); BG FRACTION INSPIRED OXYGEN 40; BG HCO3 ACT 27.2 mmol/L (22.0-26.0); BG METHEMOGLOBIN 0.3 % (0.0-1.5); BG OXYGEN SATURATION 96.4 % (92.0-98.5); BG OXYHEMOGLOBIN 95.8 % (94.0-97.0); BG PCO2 41.8 mmHg (35.0-45.0); BG PH 7.431 (7.350-7.450); BG PO2 96.4 mmHg (75.0-100.0); BG SAMPLE SITE RIGHT RADIAL; BG TOTAL HEMOGLOBIN 10.9 g/dL (12.0-18.0); BG VENT MODE VENT - AC
[2022-10-09] MEDS: KCL 20MEQ/100ML X 2 FOR TOTAL KCL 40MEQ/200ML IV SCH ×2 (10:35→13:02)
[2022-10-09] MEDS: PANTOPRAZOLE SODIUM 40 MG/VIAL IV SCH ×2 (10:35→17:22)
[2022-10-09] MEDS ORDERED: ACETAMINOPHEN 325MG TABLET PO PRN (11:15)
[2022-10-09 12:01] LABS: BG BASE EXCESS 6.4 mmol/L (-2.0-2.0); BG CARBOXYHEMOGLOBIN 0.5 % (0.5-1.5); BG DEOXYHEMOGLOBIN 3.9 % (0.0-5.0); BG FRACTION INSPIRED OXYGEN 40; BG HCO3 ACT 29.8 mmol/L (22.0-26.0); BG METHEMOGLOBIN 0.3 % (0.0-1.5); BG OXYGEN SATURATION 96.1 % (92.0-98.5); BG OXYHEMOGLOBIN 95.3 % (94.0-97.0); BG PCO2 38.3 mmHg (35.0-45.0); BG PH 7.509 (7.350-7.450); BG PO2 84.5 mmHg (75.0-100.0); BG SAMPLE SITE RIGHT RADIAL; BG TOTAL HEMOGLOBIN 10.8 g/dL (12.0-18.0); BG VENT MODE VENT - CPAP
[2022-10-09] MEDS: THIAMINE HCL 100MG TABLET PO SCH (13:02)
[2022-10-09] MEDS: FOLIC ACID 1MG TABLET PO SCH (13:02)
[2022-10-09] MEDS: DEXT 5%/0.45% NACL KCL 20MEQ/L 1,000 ML IV SCH ×2 (13:03→22:07)
[2022-10-09] MEDS ORDERED: MAGNESIUM 2 G PREMIX 50 ML IV NR (14:30)
[2022-10-09] MEDS: KCL 20MEQ/100ML PREMIX 100 ML IV SCH ×2 (14:58→17:22)
[2022-10-09] MEDS: ENOXAPARIN 40MG/0.4ML SYR SUBCUT SCH (14:59)
[2022-10-09 17:34] LABS: PHOSPHORUS 2.2 mg/dL (2.5-4.9)
[2022-10-09 21:41] LABS: *AMPHETAMINES SCREEN URINE NEGATIVE (NEGATIVE); *BARBITURATES SCREEN URINE NEGATIVE (NEGATIVE); *BENZODIAZEPINES SCREEN URINE PRESUMTIVE POSITIVE (NEGATIVE); *COCAINE SCREEN URINE NEGATIVE (NEGATIVE); CANNABINOID URINE SCREEN NEGATIVE (NEGATIVE); METHADONE URINE SCREEN NEGATIVE (NEGATIVE); OPIATES URINE SCREEN NEGATIVE (NEGATIVE); PHENCYCLIDINE URINE SCREEN NEGATIVE (NEGATIVE)
[2022-10-09] MEDS: CHLORDIAZEPOXIDE 5 MG CAPSULE PO SCH (22:09)
[2022-10-10] VITALS (26 sets, daily range): BP systolic 130–164; BP diastolic 74–113
[2022-10-10 05:23] LABS: CHLORIDE 107 mEq/L (98-107)
[2022-10-10 05:24] LABS: BASOPHILS % 0.4 % (0.0-2.0); EOSINOPHILS % 0.9 % (0.0-5.0); HEMATOCRIT. 27.8 % (42.0-52.0); HEMOGLOBIN. 9.3 g/dL (14.0-18.0); MEAN CORPUSCULAR HEMOGLOBIN 36.1 pg (28.0-32.0); MEAN CORPUSCULAR VOLUME 107.7 fL (80.0-94.0); MEAN PLATELET VOLUME 8.7 fl (7.4-10.4); MONOCYTES % 14.2 % (2.0-8.0); NEUTROPHILS % 65.5 % (40.0-76.0); PLATELET 108 x1000/uL (130-400); RED BLOOD CELL COUNT 2.58 mill/uL (4.7-6.1); RED CELL DISTRIBUTION WIDTH 20.2 % (11.6-14.6)
[2022-10-10] MEDS: CHLORDIAZEPOXIDE 5 MG CAPSULE PO SCH ×3 (06:11→20:31)
[2022-10-10] MEDS: PIPERACILLIN/TAZOBACTAM 3.375 G in DEXTROSE 5% WATER 50 ML IV SCH (06:11)
[2022-10-10] MEDS: PANTOPRAZOLE SODIUM 40 MG/VIAL IV SCH (08:40)
[2022-10-10] MEDS: SODIUM CHLORIDE 0.9% 1,000 ML IV SCH ×2 (08:40→20:37)
[2022-10-10] MEDS: THIAMINE HCL 100MG TABLET PO SCH (08:41)
[2022-10-10] MEDS: FOLIC ACID 1MG TABLET PO SCH (08:41)
[2022-10-10] MEDS: METOPROLOL TARTRATE 25MG TABLET PO SCH ×2 (08:41→20:36)
[2022-10-10] MEDS ORDERED: POTASSIUM PHOS,M-BASIC-D-BASIC 10 MMOL in DEXT 5% WATER 246.6667 ML IV NR (09:00)
[2022-10-10] MEDS ORDERED: AMLODIPINE 5MG TABLET PO SCH (09:00)
[2022-10-10 09:29] LABS: TOTAL IRON BINDING CAPACITY 219 ug/dL (250-450)
[2022-10-10 10:05] LABS: FOLIC ACID (FOLATE) SERUM 5.1 ng/mL (>5.38)
[2022-10-10] MEDS: ENOXAPARIN 40MG/0.4ML SYR SUBCUT SCH (13:46)
[2022-10-10] MEDS: MAGNESIUM OXIDE 400MG TABLET PO SCH (17:04)
[2022-10-11] VITALS: BP 146/88
[2022-10-11 01:00] VITALS: BP 134/86
[2022-10-11 02:00] VITALS: BP 144/97
[2022-10-11 04:00] VITALS: BP 131/78
[2022-10-11 06:09] LABS: CHLORIDE 107 mEq/L (98-107)
[2022-10-11 06:24] LABS: BASOPHILS % 0.5 % (0.0-2.0); EOSINOPHILS % 0.9 % (0.0-5.0); HEMOGLOBIN. 10.2 g/dL (14.0-18.0); LYMPHOCYTES % 14.6 % (20.0-50.0); MEAN CORPUSCULAR HEMOGLOBIN 36.5 pg (28.0-32.0); MEAN CORPUSCULAR VOLUME 107.7 fL (80.0-94.0); MEAN PLATELET VOLUME 9.5 fl (7.4-10.4); MONOCYTES % 10.2 % (2.0-8.0); NEUTROPHILS % 73.8 % (40.0-76.0); PLATELET 105 x1000/uL (130-400); RED BLOOD CELL COUNT 2.78 mill/uL (4.7-6.1); RED CELL DISTRIBUTION WIDTH 19.8 % (11.6-14.6)
[2022-10-11] MEDS: CHLORDIAZEPOXIDE 5 MG CAPSULE PO SCH (06:56)
[2022-10-11] MEDS ORDERED: FAMOTIDINE 20MG TABLET PO SCH (07:00)
[2022-10-11 08:00] VITALS: BP 129/78
[2022-10-11] MEDS: FOLIC ACID 1MG TABLET PO SCH (09:04)
[2022-10-11] MEDS: METOPROLOL TARTRATE 25MG TABLET PO SCH (09:04)
[2022-10-11] MEDS: THIAMINE HCL 100MG TABLET PO SCH (09:05)
[2022-10-11] MEDS: MAGNESIUM OXIDE 400MG TABLET PO SCH (09:05)
== END 2022-10-11 15:31 | disposition home or self-care (01) | DRG 208 ==
LOC: ER 18:35 → ENRESERV 23:45 → EDBEDREQ 10-09 00:02 → CVICU 10-09 01:03 → 3WST 10-11 01:52
PROVIDERS: ADMIT Internal Medicine; ATTEND Internal Medicine
PROC: 0BH17EZ Insertion of Endotracheal Airway into Trachea, Via Natural or Artificial Opening (ICD-10-PCS; principal; 2022-10-09)
PROC: 5A1935Z Respiratory Ventilation, Less than 24 Consecutive Hours (ICD-10-PCS; 2022-10-09)
PROC: 5A09357 Assistance with Respiratory Ventilation, Less than 24 Consecutive Hours, Continuous Positive Airway Pressure (ICD-10-PCS; 2022-10-09)
DX: J96.01 Acute respiratory failure with hypoxia (principal); G92.9 Unspecified toxic encephalopathy; E44.0 Moderate protein-calorie malnutrition; E87.1 Hypo-osmolality and hyponatremia; I50.22 Chronic systolic (congestive) heart failure; E87.20 Acidosis, unspecified; E87.4 Mixed disorder of acid-base balance; Z20.822 Contact with and (suspected) exposure to COVID-19; I48.91 Unspecified atrial fibrillation; J96.02 Acute respiratory failure with hypercapnia; F10.129 Alcohol abuse with intoxication, unspecified; R74.01 Elevation of levels of liver transaminase levels; E87.6 Hypokalemia; I11.0 Hypertensive heart disease with heart failure; D69.6 Thrombocytopenia, unspecified; D53.9 Nutritional anemia, unspecified; E83.42 Hypomagnesemia; K70.9 Alcoholic liver disease, unspecified; Z68.26 Body mass index [BMI] 26.0-26.9, adult; Y90.8 Blood alcohol level of 240 mg/100 ml or more
CPT/HCPCS: 31500; 36415; 36600; 71045; 71275; 80048; 80053; 80305; 80320; 81003; 82150; 82375; 82550; 82607; 82728; 82746; 82805; 82962; 83540; 83550; 83605; 83735; 83880; 84100; 84484; 85025; 85379; 86850; 86900; 87070; 87426; 93005; 94002; 94003; 97162; 99291; C9113; C9803; J0330; J1650; J2250; J2543; J2704; J3010; J3411; J3475; J3480; J3490; J7030; J7060; J7070; Q9967; A4315; G0480

== ENCOUNTER 2022-10-15 10:11 | Inpatient (IN) | payer MEDICARE, MEDICAID ==
[~2022-10-15] VITALS: Ht 188 cm; Wt 96.2 kg
[~2022-10-15 10:11] MED LIST changes: -ETOMIDATE 2MG/ML 10ML VIAL IV ONE; -LEVO-65 MT; -MIDO10TA MT; -SUCCINYLCHOLINE CHLORIDE 200MG/10ML IV ONE
[2022-10-15 13:36] LABS: HEMATOCRIT. 32.5 % (42.0-52.0); HEMOGLOBIN. 10.8 g/dL (14.0-18.0); MEAN CORPUSCULAR HEMOGLOBIN 36.3 pg (28.0-32.0); RED BLOOD CELL COUNT 2.98 mill/uL (4.7-6.1); RED CELL DISTRIBUTION WIDTH 18.8 % (11.6-14.6)
[2022-10-15 13:42] LABS: CHLORIDE 106 mEq/L (98-107)
[2022-10-15 14:04] LABS: PLATELET ESTIMATE NORMAL
[2022-10-15] MEDS ORDERED: SODIUM CHLORIDE 0.9% 1,000 ML IV ONE (15:00)
[2022-10-15] MEDS ORDERED: CLINDAMYCIN 600 MG in DEXTROSE 5% WATER 50 ML IV ONE (19:30)
[2022-10-15] MEDS ORDERED: CLINDAMYCIN 600MG PREMIX 50 ML IV NR (20:00)
[2022-10-16] MEDS ORDERED: AMLODIPINE 5MG TABLET PO ONE (00:30)
[2022-10-18] MEDS ORDERED: CLINDAMYCIN 600 MG in DEXTROSE 5% WATER 50 ML IV STA (14:51)
[2022-10-18] MEDS ORDERED: CLINDAMYCIN 600 MG in DEXTROSE 5% WATER 50 ML IV SCH (15:00)
[2022-10-18] MEDS ORDERED: CLINDAMYCIN 600MG PREMIX 50 ML IV SCH (15:00)
[2022-10-18] MEDS: CLINDAMYCIN 600MG PREMIX 50 ML IV SCH (19:45)
[2022-10-19] MEDS: CLINDAMYCIN 600MG PREMIX 50 ML IV SCH ×3 (04:42→20:54)
[2022-10-19] MEDS ORDERED: ONDANSETRON HCL 4MG/2ML INJ IV PRN (13:45)
[2022-10-19] MEDS ORDERED: FOLIC ACID 1 MG, THIAMINE HCL 100 MG, MVI, ADULT NO.1 10 ML in DEXTROSE 5% WATER 1,000 ML IV ONE ×4 (14:00)
[2022-10-19 16:35] VITALS: BP 144/94
[2022-10-19] MEDS: PANTOPRAZOLE SODIUM 40 MG/VIAL IV SCH (17:49)
[2022-10-19 19:06] LABS: EOSINOPHILS % 2.4 % (0.0-5.0); HEMATOCRIT. 34.3 % (42.0-52.0); HEMOGLOBIN. 11.3 g/dL (14.0-18.0); LYMPHOCYTES % 25.6 % (20.0-50.0); MEAN CORPUSCULAR HEMOGLOBIN 34.6 pg (28.0-32.0); MEAN CORPUSCULAR VOLUME 105.4 fL (80.0-94.0); MEAN PLATELET VOLUME 8.6 fl (7.4-10.4); MONOCYTES % 12.4 % (2.0-8.0); NEUTROPHILS % 58.6 % (40.0-76.0); PLATELET 301 x1000/uL (130-400); RED BLOOD CELL COUNT 3.25 mill/uL (4.7-6.1); RED CELL DISTRIBUTION WIDTH 18.9 % (11.6-14.6)
[2022-10-19 19:20] LABS: CHLORIDE 106 mEq/L (98-107)
[2022-10-19 19:26] LABS: TOTAL IRON BINDING CAPACITY 249 ug/dL (250-450)
[2022-10-19 19:48] LABS: FOLIC ACID (FOLATE) SERUM 9.7 ng/mL (>5.38)
[2022-10-19 20:00] VITALS: BP 156/106
[2022-10-19] MEDS ORDERED: POTASSIUM CHLORIDE INJ 40 MEQ in DEXT 5% WATER 500 ML IV SCH (20:30)
[2022-10-20] VITALS: BP 138/95
[2022-10-20 04:00] VITALS: BP 139/93
[2022-10-20] MEDS: CLINDAMYCIN 600MG PREMIX 50 ML IV SCH (04:32)
[2022-10-20 07:15] LABS: EOSINOPHILS % 3.7 % (0.0-5.0); HEMATOCRIT. 33.3 % (42.0-52.0); HEMOGLOBIN. 11.1 g/dL (14.0-18.0); LYMPHOCYTES % 29.8 % (20.0-50.0); MEAN CORPUSCULAR HEMOGLOBIN 34.3 pg (28.0-32.0); MEAN CORPUSCULAR VOLUME 103.1 fL (80.0-94.0); MEAN PLATELET VOLUME 8.5 fl (7.4-10.4); MONOCYTES % 12.4 % (2.0-8.0); NEUTROPHILS % 53.1 % (40.0-76.0); PLATELET 304 x1000/uL (130-400); RED BLOOD CELL COUNT 3.23 mill/uL (4.7-6.1); RED CELL DISTRIBUTION WIDTH 18.5 % (11.6-14.6)
[2022-10-20 07:27] LABS: CHLORIDE 106 mEq/L (98-107)
[2022-10-20 08:00] VITALS: BP 147/99
[2022-10-20] MEDS: PANTOPRAZOLE SODIUM 40 MG/VIAL IV SCH (08:29)
[2022-10-20] MEDS ORDERED: BARIUM SULFATE 176 GM SUSP.RECON ONE (13:07)
[2022-10-20] MEDS ORDERED: BARIUM SULFATE(VOLUMEN) 450 ML ORAL.SUSP ONE (13:08)
[2022-10-20] MEDS ORDERED: PROPOFOL 200MG/20ML VIAL IV ONE (15:47)
[2022-10-20] MEDS ORDERED: LIDOCAINE HCL 1% 20ML VIAL (Pyxis) INJ ONE (15:50)
[2022-10-20] MEDS ORDERED: ONDANSETRON HCL 4MG/2ML INJ ONE (15:50)
[2022-10-20] MEDS ORDERED: DEXAMETHASONE 4MG/ML 1ML VIAL ONE (15:55)
[2022-10-20] MEDS ORDERED: MIDAZOLAM HCL 2 MG/2 ML VIAL ONE (15:55)
[2022-10-20 16:00] VITALS: BP 154/101
[2022-10-20] MEDS: ASCORBIC ACID 500 MG TABLET PO SCH (18:06)
[2022-10-20] MEDS: GUAIFENESIN 200MG/10ML SUGAR FREE UDC PO PRN (18:06)
[2022-10-20] MEDS: FERROUS SULFATE 325MG TABLET PO SCH ×2 (18:07→18:08)
[2022-10-20] MEDS: AMLODIPINE 10MG TABLET PO SCH (18:07)
[2022-10-20] MEDS ORDERED: ACETAMINOPHEN 325MG TABLET PO PRN (18:15)
[2022-10-20 20:00] VITALS: BP 123/92
[2022-10-21] VITALS: BP 133/91
[2022-10-21 04:00] VITALS: BP 135/67
[2022-10-21 08:00] VITALS: BP 134/90
[2022-10-21] MEDS: GUAIFENESIN 200MG/10ML SUGAR FREE UDC PO PRN (09:04)
[2022-10-21 09:05] LABS: BASOPHILS % 0.6 % (0.0-2.0); EOSINOPHILS % 0.3 % (0.0-5.0); HEMATOCRIT. 34.2 % (42.0-52.0); HEMOGLOBIN. 11.3 g/dL (14.0-18.0); LYMPHOCYTES % 20.8 % (20.0-50.0); MEAN CORPUSCULAR HEMOGLOBIN 34.7 pg (28.0-32.0); MEAN CORPUSCULAR VOLUME 104.8 fL (80.0-94.0); MEAN PLATELET VOLUME 8.8 fl (7.4-10.4); NEUTROPHILS % 68.3 % (40.0-76.0); PLATELET 335 x1000/uL (130-400); RED BLOOD CELL COUNT 3.26 mill/uL (4.7-6.1); RED CELL DISTRIBUTION WIDTH 18.8 % (11.6-14.6)
[2022-10-21] MEDS: FERROUS SULFATE 325MG TABLET PO SCH ×2 (09:05→17:56)
[2022-10-21] MEDS: AMLODIPINE 10MG TABLET PO SCH (09:06)
[2022-10-21] MEDS: ASCORBIC ACID 500 MG TABLET PO SCH ×2 (09:07→17:56)
[2022-10-21] MEDS: PANTOPRAZOLE SODIUM 40 MG/VIAL IV SCH (09:07)
[2022-10-21 09:25] LABS: CHLORIDE 105 mEq/L (98-107)
[2022-10-21 12:00] VITALS: BP 107/74
[2022-10-21 16:00] VITALS: BP 134/90
[2022-10-22 08:00] VITALS: BP 158/127
[2022-10-22] MEDS ORDERED: IOHEXOL-350 100 ML BOTTLE ONE (09:09)
[2022-10-22] MEDS: FERROUS SULFATE 325MG TABLET PO SCH ×2 (10:04→18:40)
[2022-10-22] MEDS: ASCORBIC ACID 500 MG TABLET PO SCH ×2 (10:04→18:40)
[2022-10-22] MEDS: AMLODIPINE 10MG TABLET PO SCH (10:05)
[2022-10-22] MEDS: PANTOPRAZOLE SODIUM 40 MG/VIAL IV SCH (11:15)
[2022-10-22 12:00] VITALS: BP 124/86
[2022-10-22] MEDS ORDERED: ALPRAZOLAM 0.25 MG TABLET PO PRN (15:45)
[2022-10-22 16:00] VITALS: BP 132/88
[2022-10-22 20:00] VITALS: BP 135/96
[2022-10-22] MEDS ORDERED: DOCUSATE SODIUM 100MG CAPSULE PO SCH (21:00)
[2022-10-22] MEDS ORDERED: BISACODYL 10MG SUPP PR PRN (21:00)
[2022-10-23] VITALS (17 sets, daily range): BP systolic 122–163; BP diastolic 62–108
[2022-10-23] MEDS ORDERED: SKIN ADHESIVE 0.7 GM EA TOP ONE (06:36)
[2022-10-23] MEDS ORDERED: POLYMYXIN B SULFATE 500000 UNITS/VIAL ONE (06:36)
[2022-10-23] MEDS ORDERED: LIDOCAINE HCL 1%/EPI 1:200,000 30 ML VIAL ONE (06:36)
[2022-10-23] MEDS ORDERED: TETRACAINE/BENZOCAINE/BUTAMBEN 20 GM SPRAY MM ONE (06:37)
[2022-10-23] MEDS ORDERED: BUPIVACAINE HCL/PF 0.25% (2.5MG/ML) 10ML ONE (06:42)
[2022-10-23] MEDS ORDERED: DOXYCYCLINE 100 MG VIAL TOP ONE (07:00)
[2022-10-23] MEDS ORDERED: TALC 3 GM VIAL IX SCH (07:00)
[2022-10-23] MEDS ORDERED: DOPAMINE 400MG/250ML PREMIX 250 ML IV SCH (07:30)
[2022-10-23 07:39] LABS: INR 1.9; PROTHROMBIN TIME 20.1 sec (9.6-11.0)
[2022-10-23 07:43] LABS: BASOPHILS % 1.2 % (0.0-2.0); EOSINOPHILS % 1.8 % (0.0-5.0); HEMATOCRIT. 35.7 % (42.0-52.0); HEMOGLOBIN. 11.7 g/dL (14.0-18.0); LYMPHOCYTES % 26.8 % (20.0-50.0); MEAN CORPUSCULAR HEMOGLOBIN 34.3 pg (28.0-32.0); MEAN CORPUSCULAR VOLUME 104.6 fL (80.0-94.0); MEAN PLATELET VOLUME 8.7 fl (7.4-10.4); MONOCYTES % 10.1 % (2.0-8.0); NEUTROPHILS % 60.1 % (40.0-76.0); PLATELET 327 x1000/uL (130-400); RED BLOOD CELL COUNT 3.42 mill/uL (4.7-6.1); RED CELL DISTRIBUTION WIDTH 18.8 % (11.6-14.6)
[2022-10-23] MEDS ORDERED: HYDROMORPHONE HCL/PF 2MG/ML CPJ ONE (07:50)
[2022-10-23] MEDS: ASCORBIC ACID 500 MG TABLET PO SCH ×2 (07:50→20:34)
[2022-10-23] MEDS: FERROUS SULFATE 325MG TABLET PO SCH ×2 (07:50→20:33)
[2022-10-23] MEDS ORDERED: ROCURONIUM BROMIDE 10MG/ML VIAL 5ML IV ONE ×2 (07:50→09:01)
[2022-10-23 08:34] LABS: CHLORIDE 104 mEq/L (98-107)
[2022-10-23] MEDS ORDERED: DEXAMETHASONE 4MG/ML 1ML VIAL ONE (09:49)
[2022-10-23] MEDS ORDERED: GLYCOPYRROLATE 0.2 MG/ML 2ML VIAL ONE ×2 (09:50)
[2022-10-23] MEDS ORDERED: NEOSTIGMINE METHYLSULFATE 1MG/ML 10 ML VIAL ONE (09:50)
[2022-10-23] MEDS ORDERED: OXYCODONE HCL/ACETAMINOPHEN 5/325MG TABLET PO PRN ×2 (10:45)
[2022-10-23] MEDS ORDERED: IPRATROPIUM/ALBUTEROL 0.5-3(2.5)MG/3ML NEB HHN NR (10:45)
[2022-10-23] MEDS ORDERED: SODIUM CHLORIDE 0.9% 500 ML IV PRN (10:45)
[2022-10-23] MEDS ORDERED: IPRATROPIUM/ALBUTEROL 0.5-3(2.5)MG/3ML NEB HHN SCH (10:45)
[2022-10-23] MEDS ORDERED: ONDANSETRON HCL 4MG/2ML INJ IV PRN (10:45)
[2022-10-23] MEDS: MAGNESIUM HYDROXIDE 400MG/5ML 30ML UDC PO SCH ×4 (10:45→21:01)
[2022-10-23] MEDS ORDERED: HYDRALAZINE 20MG/ML VIAL IV NR (11:15)
[2022-10-23] MEDS ORDERED: HYDRALAZINE 20MG/ML VIAL ONE (11:22)
[2022-10-23] MEDS ORDERED: NALOXONE HCL 0.4MG/ML VIAL IV PRN (11:30)
[2022-10-23 11:34] LABS: BG BASE EXCESS -4.3 mmol/L (-2.0-2.0); BG CARBOXYHEMOGLOBIN 0.3 % (0.5-1.5); BG DEOXYHEMOGLOBIN 3.3 % (0.0-5.0); BG FRACTION INSPIRED OXYGEN 40; BG HCO3 ACT 21.6 mmol/L (22.0-26.0); BG METHEMOGLOBIN 0.3 % (0.0-1.5); BG OXYGEN SATURATION 96.7 % (92.0-98.5); BG OXYHEMOGLOBIN 96.1 % (94.0-97.0); BG PCO2 42.7 mmHg (35.0-45.0); BG PH 7.321 (7.350-7.450); BG PO2 98.5 mmHg (75.0-100.0); BG SAMPLE SITE ALINE; BG TOTAL HEMOGLOBIN 11.9 g/dL (12.0-18.0); BG VENT MODE MASK - SIMPLE
[2022-10-23] MEDS ORDERED: IPRATROPIUM BROMIDE (0.02%) 0.5MG/2.5ML NEB HHN PRN (11:45)
[2022-10-23] MEDS ORDERED: ALBUTEROL (0.083%) 2.5MG/3ML NEB HHN PRN (11:45)
[2022-10-23] MEDS: PANTOPRAZOLE 40MG DR TABLET PO SCH (12:00)
[2022-10-23] MEDS: DEXT 5%/0.45% NACL 1000ML 1,000 ML IV SCH (14:59)
[2022-10-23] MEDS: AMLODIPINE 10MG TABLET PO SCH (15:04)
[2022-10-23] MEDS: HYDRALAZINE HCL 100MG TABLET PO SCH ×2 (16:19→21:01)
[2022-10-23] MEDS: CEFAZOLIN 1000MG PREMIX 50 ML IV SCH (16:26)
[2022-10-23] MEDS: MORPHINE SULFATE 2 MG/ML CPJ (NOT FOR IM USE) IV PRN (22:06)
[2022-10-24] VITALS (47 sets, daily range): BP systolic 100–165; BP diastolic 34–117
[2022-10-24] MEDS: CEFAZOLIN 1000MG PREMIX 50 ML IV SCH ×3 (01:17→17:19)
[2022-10-24] MEDS: MAGNESIUM HYDROXIDE 400MG/5ML 30ML UDC PO SCH ×3 (01:17→10:45)
[2022-10-24] MEDS: MORPHINE SULFATE 2 MG/ML CPJ (NOT FOR IM USE) IV PRN ×2 (05:30→09:04)
[2022-10-24] MEDS: HYDRALAZINE HCL 100MG TABLET PO SCH (05:30)
[2022-10-24 06:00] LABS: BASOPHILS % 0.3 % (0.0-2.0); HEMATOCRIT. 35.3 % (42.0-52.0); HEMOGLOBIN. 11.7 g/dL (14.0-18.0); MEAN CORPUSCULAR HEMOGLOBIN 34.4 pg (28.0-32.0); MEAN CORPUSCULAR VOLUME 103.3 fL (80.0-94.0); MEAN PLATELET VOLUME 8.9 fl (7.4-10.4); MONOCYTES % 10.1 % (2.0-8.0); NEUTROPHILS % 79.6 % (40.0-76.0); PLATELET 393 x1000/uL (130-400); RED BLOOD CELL COUNT 3.41 mill/uL (4.7-6.1); RED CELL DISTRIBUTION WIDTH 18.3 % (11.6-14.6)
[2022-10-24 06:33] LABS: CHLORIDE 106 mEq/L (98-107)
[2022-10-24] MEDS: DEXT 5%/0.45% NACL 1000ML 1,000 ML IV SCH (07:40)
[2022-10-24] MEDS: AMLODIPINE 10MG TABLET PO SCH (09:00)
[2022-10-24] MEDS: PANTOPRAZOLE 40MG DR TABLET PO SCH (09:46)
[2022-10-24] MEDS: ASCORBIC ACID 500 MG TABLET PO SCH (09:46)
[2022-10-24] MEDS: FERROUS SULFATE 325MG TABLET PO SCH (09:46)
[2022-10-24] MEDS: HYDRALAZINE HCL 50MG TABLET PO SCH ×2 (15:38→21:36)
[2022-10-25] VITALS (8 sets, daily range): BP systolic 118–135; BP diastolic 61–91
[2022-10-25] MEDS: DEXT 5%/0.45% NACL 1000ML 1,000 ML IV SCH ×2 (00:20→01:59)
[2022-10-25] MEDS: MORPHINE SULFATE 2 MG/ML CPJ (NOT FOR IM USE) IV PRN (04:31)
[2022-10-25] MEDS: HYDRALAZINE HCL 50MG TABLET PO SCH ×2 (06:00→13:06)
[2022-10-25] MEDS: PANTOPRAZOLE 40MG DR TABLET PO SCH (06:17)
[2022-10-25 06:54] LABS: BASOPHILS % 0.5 % (0.0-2.0); HEMATOCRIT. 32.9 % (42.0-52.0); HEMOGLOBIN. 10.9 g/dL (14.0-18.0); LYMPHOCYTES % 14.7 % (20.0-50.0); MEAN CORPUSCULAR HEMOGLOBIN 33.8 pg (28.0-32.0); MEAN CORPUSCULAR VOLUME 102.3 fL (80.0-94.0); MEAN PLATELET VOLUME 8.8 fl (7.4-10.4); MONOCYTES % 12.2 % (2.0-8.0); NEUTROPHILS % 71.6 % (40.0-76.0); PLATELET 322 x1000/uL (130-400); RED BLOOD CELL COUNT 3.21 mill/uL (4.7-6.1); RED CELL DISTRIBUTION WIDTH 18.5 % (11.6-14.6)
[2022-10-25] MEDS: FERROUS SULFATE 325MG TABLET PO SCH ×2 (08:18→17:32)
[2022-10-25] MEDS: ASCORBIC ACID 500 MG TABLET PO SCH ×2 (08:18→17:32)
[2022-10-25] MEDS: AMLODIPINE 10MG TABLET PO SCH (08:19)
[2022-10-25 09:15] LABS: CHLORIDE 107 mEq/L (98-107)
[2022-10-25] MEDS ORDERED: AMLO10TA80 PO (17:06)
[2022-10-25] MEDS ORDERED: HYDR-4135 PO (17:06)
[2022-10-25] MEDS ORDERED: HYDR-4350 MT (17:06)
== END 2022-10-25 18:30 | disposition home or self-care (01) | DRG 988 ==
LOC: ER 10:34 → 6EST 10-17 10:33 → UNDOADMIN 10-17 10:33 → 6EST 10-19 11:57 → EDBEDREQSVC 10-19 12:03 → EDBEDREQTM 10-19 12:03 → CVICU 10-23 18:10 → 3WST 10-25 01:15
PROVIDERS: ADMIT Internal Medicine; ATTEND Internal Medicine
PROC: 0DJ08ZZ Inspection of Upper Intestinal Tract, Via Natural or Artificial Opening Endoscopic (ICD-10-PCS; 2022-10-20)
PROC: 02HV33Z Insertion of Infusion Device into Superior Vena Cava, Percutaneous Approach (ICD-10-PCS; 2022-10-21)
PROC: B548ZZA Ultrasonography of Superior Vena Cava, Guidance (ICD-10-PCS; 2022-10-21)
PROC: 0WBC0ZX Excision of Mediastinum, Open Approach, Diagnostic (ICD-10-PCS; principal; 2022-10-23)
PROC: 0W9900Z Drainage of Right Pleural Cavity with Drainage Device, Open Approach (ICD-10-PCS; 2022-10-23)
PROC: 30233K1 Transfusion of Nonautologous Frozen Plasma into Peripheral Vein, Percutaneous Approach (ICD-10-PCS; 2022-10-23)
DX: D13.0 Benign neoplasm of esophagus (principal); I42.9 Cardiomyopathy, unspecified; J39.0 Retropharyngeal and parapharyngeal abscess; I50.22 Chronic systolic (congestive) heart failure; I47.1 Supraventricular tachycardia; D36.10 Benign neoplasm of peripheral nerves and autonomic nervous system, unspecified; I11.0 Hypertensive heart disease with heart failure; I48.91 Unspecified atrial fibrillation; Z20.822 Contact with and (suspected) exposure to COVID-19; D64.9 Anemia, unspecified; D72.825 Bandemia; F10.10 Alcohol abuse, uncomplicated; J45.909 Unspecified asthma, uncomplicated; K29.70 Gastritis, unspecified, without bleeding; K44.9 Diaphragmatic hernia without obstruction or gangrene; Y90.8 Blood alcohol level of 240 mg/100 ml or more; I48.0 Paroxysmal atrial fibrillation; K22.4 Dyskinesia of esophagus; N40.0 Benign prostatic hyperplasia without lower urinary tract symptoms; K74.60 Unspecified cirrhosis of liver; Z87.01 Personal history of pneumonia (recurrent)
CPT/HCPCS: 36415; 36573; 36600; 70360; 70491; 71045; 71250; 71275; 74220; 80048; 80053; 80076; 82270; 82375; 82607; 82728; 82746; 82805; 82962; 83540; 83550; 83880; 84145; 84484; 85025; 85044; 86850; 86900; 86920; 86927; 87070; 87426; 87430; 87804; 88307; 88331; 93005; 94640; 96361; 96365; 97116; 97162; 97166; 99285; C1725; C1769; C1893; C9113; C9803; J0360; J0690; J1100; J1170; J1265; J2250; J2270; J2405; J2704; J2710; J3411; J3480; J3490; J7030; J7060; J7070; P9017; Q9967

== ENCOUNTER 2023-01-11 15:36 | Emergency (ER) | payer MEDICARE, MEDICAID ==
[~2023-01-11] VITALS: Ht 193 cm; Wt 111.0 kg
[~2023-01-11 15:36] MED LIST changes: -AMI2 PO; +AMLO10TA80 PO; +HYDR-4135 PO; +HYDR-4350 MT
[2023-01-11 15:44] VITALS: BP 141/91
[2023-01-11 17:58] LABS: BASOPHILS % 0.5 % (0.0-2.0); EOSINOPHILS % 0.4 % (0.0-5.0); HEMATOCRIT. 42.4 % (42.0-52.0); HEMOGLOBIN. 14.2 g/dL (14.0-18.0); LYMPHOCYTES % 37.6 % (20.0-50.0); MEAN CORPUSCULAR HEMOGLOBIN 29.3 pg (28.0-32.0); MEAN CORPUSCULAR VOLUME 87.1 fL (80.0-94.0); MEAN PLATELET VOLUME 7.5 fl (7.4-10.4); NEUTROPHILS % 52.5 % (40.0-76.0); PLATELET 174 x1000/uL (130-400); RED BLOOD CELL COUNT 4.87 mill/uL (4.7-6.1); RED CELL DISTRIBUTION WIDTH 14.5 % (11.6-14.6)
[2023-01-11 18:04] LABS: CHLORIDE 106 mEq/L (98-107)
[2023-01-11] MEDS ORDERED: CEPHALEXIN 250MG CAPSULE PO ONE (20:45)
[2023-01-11] MEDS ORDERED: SULFAMETHOXAZOLE/TRIMETHOPRIM 800/160MG TABLET PO ONE (20:45)
[2023-01-11] MEDS ORDERED: SULF1TAB48 MT (22:14)
[2023-01-11] MEDS ORDERED: CEPH500C2 MT (22:14)
== END 2023-01-11 22:36 | disposition home or self-care (01) ==
LOC: ER 15:36
DX: S92.422A Displaced fracture of distal phalanx of left great toe, initial encounter for closed fracture (principal); X58.XXXA Exposure to other specified factors, initial encounter; Y93.89 Activity, other specified; Y92.89 Other specified places as the place of occurrence of the external cause; Y99.8 Other external cause status; I48.91 Unspecified atrial fibrillation; I10 Essential (primary) hypertension; Z79.899 Other long term (current) drug therapy
CPT/HCPCS: 29515; 36415; 73630; 80053; 85025; 99284

== ENCOUNTER 2023-10-23 13:39 | Inpatient (IN) | payer MEDICARE ==
[~2023-10-23] VITALS: Ht 375.9 cm; Wt 101.6 kg
[~2023-10-23 13:39] MED LIST changes: +CEPH500C2 MT; -HYDR-4135 PO; +HYDR50TA39 PO; +SULF1TAB48 MT
[2023-10-23 14:19] LABS: BASOPHILS % 0.7 % (0.0-2.0); HEMATOCRIT. 35.8 % (42.0-52.0); MEAN CORPUSCULAR HEMOGLOBIN 37.7 pg (28.0-32.0); MEAN CORPUSCULAR HGB CONC 30.8 g/dL (31.0-37.0); MEAN CORPUSCULAR VOLUME 122.5 fL (80.0-94.0); MEAN PLATELET VOLUME 10.5 fl (7.4-10.4); MONOCYTES % 4.9 % (2.0-8.0); NEUTROPHILS % 85.4 % (40.0-76.0); PLATELET 58 x1000/uL (130-400); RED BLOOD CELL COUNT 2.92 mill/uL (4.7-6.1); RED CELL DISTRIBUTION WIDTH 19.7 % (11.6-14.6); WHITE BLOOD COUNT 8.7 x1000/uL (4.5-11.0)
[2023-10-23 14:22] LABS: DIFFERENTIAL COMMENT 1
[2023-10-23 14:25] LABS: ADD RBC MORPHOLOGY YES; INR 1.1; PROTHROMBIN TIME 12.6 sec (9.6-11.0)
[2023-10-23 14:28] LABS: ALANINE AMINOTRANSFERASE 30 IU/L (10-49); ALBUMIN 3.9 g/dL (3.2-4.8); ASPARTATE AMINOTRANSFERASE 128 IU/L (<34); BILIRUBIN TOTAL 4.8 mg/dL (0.1-1.0); CALCIUM 8.1 mg/dL (8.7-10.4); CHLORIDE 97 mEq/L (98-107); ETHANOL BLOOD 298 mg/dL (<10); GLUCOSE 100 mg/dL (70-105); PHOSPHORUS 4.6 mg/dL (2.5-4.9); POTASSIUM 3.4 mEq/L (3.5-5.1); PROTEIN TOTAL 7.5 g/dL (6.0-8.3); SODIUM 139 mEq/L (136-145); UREA NITROGEN BLOOD 13 mg/dL (9-23)
[2023-10-23 14:50] LABS: CARBON DIOXIDE < 10 mEq/L (21-32)
[2023-10-23 16:30] VITALS: BP 126/84; PULSE 109; RESP 20; TEMP 97.7
[2023-10-23 16:46] VITALS: BP 126/84; PULSE 109; RESP 20; TEMP 97.7
[2023-10-23 16:56] VITALS: BP 126/84; PULSE 109; RESP 20; TEMP 97.7
[2023-10-23] MEDS ORDERED: LORAZEPAM 1MG TABLET PO PRN ×2 (18:30→19:30)
[2023-10-23] MEDS ORDERED: LORAZEPAM 2MG/ML INJ IV PRN (18:30)
[2023-10-23] MEDS: SODIUM CHLORIDE 0.9% 1,000 ML IV SCH (18:33)
[2023-10-23 20:00] VITALS: BP 122/70; PULSE 104; RESP 20; TEMP 97.9
[2023-10-23] MEDS: PANTOPRAZOLE 80 MG in SODIUM CHLORIDE 0.9% 100 ML IV SCH (23:31)
[2023-10-23] MEDS: CHLORDIAZEPOXIDE 10MG CAPSULE PO NR (23:31)
[2023-10-24] VITALS (8 sets, daily range): BP systolic 127–138; BP diastolic 69–90; PULSE 79–106; RESP 18–20; TEMP 97.6–99.9
[2023-10-24] MEDS ORDERED: DEXTROSE 50% WATER 50ML SYRINGE IV PRN (04:30)
[2023-10-24] MEDS: INSULIN LISPRO 100 UNITS/ML SUBCUT SCH (06:11)
[2023-10-24] MEDS: MAGNESIUM 2 G PREMIX 50 ML IV NR (06:11)
[2023-10-24] MEDS: BLOOD SUGAR DIAGNOSTIC STRIP TEST SCH (06:11)
[2023-10-24 07:24] LABS: BASOPHILS % 0.6 % (0.0-2.0); EOSINOPHILS % 0.2 % (0.0-5.0); HEMATOCRIT. 30.8 % (42.0-52.0); HEMOGLOBIN. 9.7 g/dL (14.0-18.0); LYMPHOCYTES % 11.4 % (20.0-50.0); MEAN CORPUSCULAR HEMOGLOBIN 38.8 pg (28.0-32.0); MEAN CORPUSCULAR HGB CONC 31.6 g/dL (31.0-37.0); MEAN PLATELET VOLUME 10.1 fl (7.4-10.4); MONOCYTES % 8.8 % (2.0-8.0); RED BLOOD CELL COUNT 2.51 mill/uL (4.7-6.1); RED CELL DISTRIBUTION WIDTH 18.6 % (11.6-14.6); WHITE BLOOD COUNT 8.5 x1000/uL (4.5-11.0)
[2023-10-24 07:51] LABS: CALCIUM 8.4 mg/dL (8.7-10.4); CARBON DIOXIDE 17 mEq/L (21-32); CHLORIDE 99 mEq/L (98-107); CREATININE 0.7 mg/dL (0.6-1.3); GLUCOSE 99 mg/dL (70-105); SODIUM 135 mEq/L (136-145); UREA NITROGEN BLOOD 11 mg/dL (9-23)
[2023-10-24 08:22] LABS: DIFFERENTIAL COMMENT 1
[2023-10-24 10:07] LABS: ADD RBC MORPHOLOGY YES
[2023-10-24] MEDS ORDERED: SODIUM CHLORIDE 0.9% 1,000 ML IV SCH (12:00)
[2023-10-24 12:55] LABS: AMMONIA 61 uMol/L (<32)
[2023-10-24 12:56] LABS: ALANINE AMINOTRANSFERASE 27 IU/L (10-49); ALBUMIN 3.7 g/dL (3.2-4.8); ASPARTATE AMINOTRANSFERASE 95 IU/L (<34); BILIRUBIN DIRECT 2.6 mg/dL (<=3.0); BILIRUBIN TOTAL 5.1 mg/dL (0.1-1.0)
[2023-10-24 13:29] LABS: INR 1.1
[2023-10-24 13:33] LABS: HEPATITIS A AB IGM NEGATIVE (Negative); HEPATITIS B CORE AB IGM NEGATIVE (Negative); HEPATITIS B SURFACE ANTIGEN NEGATIVE (Negative); HEPATITIS C AB NON REACTIVE (Neg) (Negative)
[2023-10-24 13:34] LABS: ETHANOL BLOOD < 10 mg/dL (<10)
[2023-10-24] MEDS ORDERED: PROPOFOL 200MG/20ML VIAL IV ONE ×2 (16:40→16:54)
[2023-10-24] MEDS ORDERED: MIDAZOLAM HCL 2 MG/2 ML VIAL ONE (16:40)
[2023-10-24] MEDS ORDERED: LIDOCAINE HCL 1% 10 MG/ML 10ML VIAL ONE (16:45)
[2023-10-24] MEDS ORDERED: ONDANSETRON HCL 4MG/2ML INJ ONE (16:45)
[2023-10-24] MEDS ORDERED: DEXAMETHASONE 4MG/ML 1ML VIAL ONE (16:45)
[2023-10-24] MEDS ORDERED: SIMETHICONE 40 MG/0.6 ML 15ML ONE (16:47)
[2023-10-24] MEDS: PANTOPRAZOLE SODIUM 40 MG/VIAL IV SCH (20:40)
[2023-10-25] VITALS: BP 140/83; PULSE 94; RESP 22; TEMP 98.1
[2023-10-25 04:00] VITALS: BP 138/78; PULSE 96; RESP 18; TEMP 98.6
[2023-10-25 06:35] LABS: PLATELET 44 x1000/uL (130-400)
[2023-10-25 06:35] LABS: INR 1.1; PROTHROMBIN TIME 12.4 sec (9.6-11.0)
[2023-10-25 07:00] LABS: HEMATOCRIT. 26.1 % (42.0-52.0); HEMOGLOBIN. 8.9 g/dL (14.0-18.0); MEAN CORPUSCULAR HEMOGLOBIN 38.6 pg (28.0-32.0); MEAN CORPUSCULAR HGB CONC 34.2 g/dL (31.0-37.0); MEAN CORPUSCULAR VOLUME 113.1 fL (80.0-94.0); MEAN PLATELET VOLUME 11.2 fl (7.4-10.4); PLATELET 55 x1000/uL (130-400); RED BLOOD CELL COUNT 2.31 mill/uL (4.7-6.1); RED CELL DISTRIBUTION WIDTH 17.5 % (11.6-14.6)
[2023-10-25 07:13] LABS: ALANINE AMINOTRANSFERASE 23 IU/L (10-49); ALBUMIN 3.7 g/dL (3.2-4.8); ASPARTATE AMINOTRANSFERASE 91 IU/L (<34); BILIRUBIN TOTAL 5.3 mg/dL (0.1-1.0); CALCIUM 8.8 mg/dL (8.7-10.4); CARBON DIOXIDE 28 mEq/L (21-32); CHLORIDE 99 mEq/L (98-107); CREATININE 0.9 mg/dL (0.6-1.3); GLUCOSE 180 mg/dL (70-105); POTASSIUM 3.5 mEq/L (3.5-5.1); SODIUM 137 mEq/L (136-145); UREA NITROGEN BLOOD 13 mg/dL (9-23)
[2023-10-25 07:14] LABS: DIFFERENTIAL COMMENT 1
[2023-10-25 08:16] VITALS: BP 131/83; PULSE 87; RESP 20; TEMP 98.8
[2023-10-25] MEDS: IRON SUCROSE COMPLEX 100 MG/5 ML ML IV SCH (11:57)
[2023-10-25 12:00] VITALS: BP 119/78; PULSE 87; RESP 20; TEMP 99.9
[2023-10-25] MEDS ORDERED: FOLIC ACID 1 MG, THIAMINE HCL 100 MG, MVI, ADULT NO.1 10 ML in SODIUM CHLORIDE 0.9% 1,0... IV SCH (12:00)
[2023-10-25] MEDS: FOLIC ACID 1 MG, THIAMINE HCL 100 MG, MVI, ADULT NO.1 10 ML in SODIUM CHLORIDE 0.9% 1,0... IV SCH (13:08)
[2023-10-25 15:56] LABS: ANISOCYTOSIS 1+; PLATELET ESTIMATE MARKEDLY DECREASED
[2023-10-25 16:00] VITALS: BP 126/81; PULSE 94; RESP 18; TEMP 99.1
[2023-10-25] MEDS: LACTULOSE 20G/30ML UDC PO SCH (17:13)
[2023-10-25 20:00] VITALS: BP 106/73; PULSE 90; RESP 22; TEMP 97.7
[2023-10-26] VITALS (7 sets, daily range): BP systolic 99–139; BP diastolic 65–91; PULSE 88–94; RESP 16–22; TEMP 97.5–98.2; O2SAT 98
[2023-10-26 06:22] LABS: AMMONIA 57 uMol/L (<32)
[2023-10-26 06:28] LABS: ALANINE AMINOTRANSFERASE 25 IU/L (10-49); ALBUMIN 3.3 g/dL (3.2-4.8); ASPARTATE AMINOTRANSFERASE 104 IU/L (<34); BILIRUBIN TOTAL 3.5 mg/dL (0.1-1.0); CALCIUM 8.1 mg/dL (8.7-10.4); CARBON DIOXIDE 35 mEq/L (21-32); CHLORIDE 97 mEq/L (98-107); GLUCOSE 136 mg/dL (70-105); SODIUM 138 mEq/L (136-145); UREA NITROGEN BLOOD 8 mg/dL (9-23)
[2023-10-26 06:34] LABS: BASOPHILS % 0.3 % (0.0-2.0); EOSINOPHILS % 0.6 % (0.0-5.0); HEMATOCRIT. 26.2 % (42.0-52.0); HEMOGLOBIN. 9.1 g/dL (14.0-18.0); LYMPHOCYTES % 18.6 % (20.0-50.0); MEAN CORPUSCULAR HGB CONC 34.8 g/dL (31.0-37.0); MEAN CORPUSCULAR VOLUME 112.3 fL (80.0-94.0); MONOCYTES % 7.1 % (2.0-8.0); NEUTROPHILS % 73.4 % (40.0-76.0); PLATELET 59 x1000/uL (130-400); RED BLOOD CELL COUNT 2.33 mill/uL (4.7-6.1); RED CELL DISTRIBUTION WIDTH 17.6 % (11.6-14.6); WHITE BLOOD COUNT 8.8 x1000/uL (4.5-11.0)
[2023-10-26 07:03] LABS: DIFFERENTIAL COMMENT 1
[2023-10-26 07:08] LABS: CREATININE 0.5 mg/dL (0.6-1.3)
[2023-10-26 07:10] LABS: PHOSPHORUS 0.9 mg/dL (2.5-4.9); POTASSIUM 2.6 mEq/L (3.5-5.1)
[2023-10-26] MEDS: POTASSIUM CHLORIDE 20MEQ TABLET SR PO SCH (09:14)
[2023-10-26] MEDS ORDERED: PROT40 PO (10:16)
[2023-10-26] MEDS: POTASSIUM PHOSPHATE 20 MMOL in DEXT 5% WATER 243.3333 ML IV NR (10:28)
[2023-10-27] VITALS: BP 102/66; PULSE 88; RESP 18; TEMP 99
[2023-10-27 04:00] VITALS: BP 105/75; PULSE 88; RESP 18; TEMP 98.4
[2023-10-27 08:00] VITALS: BP 110/75; PULSE 86; RESP 18; TEMP 98.4
[2023-10-27 12:00] VITALS: BP 98/52; PULSE 89; RESP 18; TEMP 97.9
[2023-10-27 13:46] VITALS: BP 110/75; PULSE 68; TEMP 98.4; O2SAT 98
== END 2023-10-27 14:22 | disposition home or self-care (01) | DRG 377 ==
LOC: EDBEDREQTM 14:50 → EDBEDREQ 14:50 → ER 16:32 → 7EST 16:33
PROVIDERS: ADMIT Internal Medicine Nephrology; ATTEND Internal Medicine Nephrology
PROC: 0DB78ZX Excision of Stomach, Pylorus, Via Natural or Artificial Opening Endoscopic, Diagnostic (ICD-10-PCS; principal; 2023-10-24)
PROC: 30233R1 Transfusion of Nonautologous Platelets into Peripheral Vein, Percutaneous Approach (ICD-10-PCS; 2023-10-24)
DX: K29.71 Gastritis, unspecified, with bleeding (principal); G93.41 Metabolic encephalopathy; D62 Acute posthemorrhagic anemia; E87.20 Acidosis, unspecified; E72.20 Disorder of urea cycle metabolism, unspecified; E83.42 Hypomagnesemia; F10.229 Alcohol dependence with intoxication, unspecified; D69.59 Other secondary thrombocytopenia; D75.89 Other specified diseases of blood and blood-forming organs; E11.9 Type 2 diabetes mellitus without complications; E87.6 Hypokalemia; I10 Essential (primary) hypertension; K44.9 Diaphragmatic hernia without obstruction or gangrene; K70.10 Alcoholic hepatitis without ascites; K76.0 Fatty (change of) liver, not elsewhere classified; N40.0 Benign prostatic hyperplasia without lower urinary tract symptoms; D53.9 Nutritional anemia, unspecified; Y90.8 Blood alcohol level of 240 mg/100 ml or more; E80.6 Other disorders of bilirubin metabolism; Z79.899 Other long term (current) drug therapy
CPT/HCPCS: 36415; 71045; 76700; 80048; 80053; 80076; 80320; 82140; 82962; 83036; 83735; 83880; 84100; 84443; 84484; 85018; 85025; 86705; 86709; 86850; 86900; 87340; 88305; 88312; 88313; 93005; 96365; 99285; C9113; J1100; J1815; J2250; J2405; J2704; J3411; J3475; J3490; J7030; J7050; J7060; G0480; P9036

== ENCOUNTER → 2024-04-23 | Outpatient (CLI) | payer MEDICARE, MEDICAID ==
[~2024-04-23] MED LIST changes: -CEPH500C2 MT; +FOLI-43 MT; +METO25TA6 PO; +PROT40 PO; -SULF1TAB48 MT
== END | disposition home or self-care (01) ==
LOC: CARD 08:50
PROVIDERS: ATTEND Internal Medicine
DX: I48.91 Unspecified atrial fibrillation (principal)
CPT/HCPCS: 93306

== ENCOUNTER 2025-01-18 19:21 | Inpatient (IN) | payer OTHER, MEDICARE ==
[~2025-01-18] VITALS: Ht 375.9 cm; Wt 136.1 kg
[~2025-01-18 19:21] MED LIST changes: +AMIO100T4 PO; -AMLO10TA80 PO; -FOLI-43 MT; -HYDR-4350 MT; -HYDR50TA39 PO; +MAGN400C MT; +METO-396 PO; -METO25TA6 PO; -PROT40 PO; -TAMS-11 MT
[2025-01-18 20:56] LABS: BASOPHILS % 0.8 % (0.0-2.0); EOSINOPHILS % 0.3 % (0.0-5.0); HEMATOCRIT. 45.8 % (42.0-52.0); HEMOGLOBIN. 14.9 g/dL (14.0-18.0); LYMPHOCYTES % 22.8 % (20.0-50.0); MEAN CORPUSCULAR HEMOGLOBIN 29.7 pg (28.0-32.0); MEAN CORPUSCULAR HGB CONC 32.6 g/dL (31.0-37.0); MEAN CORPUSCULAR VOLUME 91.1 fL (80.0-94.0); MONOCYTES % 8.4 % (2.0-8.0); NEUTROPHILS % 67.7 % (40.0-76.0); RED BLOOD CELL COUNT 5.03 mill/uL (4.7-6.1); RED CELL DISTRIBUTION WIDTH 17.3 % (11.6-14.6)
[2025-01-18 20:59] LABS: DIFFERENTIAL COMMENT 1
[2025-01-18 21:04] LABS: CHLORIDE 96 mEq/L (98-107); POTASSIUM 3.3 mEq/L (3.5-5.1); SODIUM 132 mEq/L (136-145)
[2025-01-18 21:05] LABS: CARBON DIOXIDE 24 mEq/L (21-32)
[2025-01-18 21:11] LABS: GLUCOSE 175 mg/dL (70-105); UREA NITROGEN BLOOD 19 mg/dL (9-23)
[2025-01-18 21:12] LABS: TROPONIN I HIGH SENSITIVITY 26 ng/L (3.0-53)
[2025-01-18 21:15] LABS: MEAN PLATELET VOLUME 11.1 fl (7.4-10.4)
[2025-01-18 21:21] LABS: CREATININE 1.7 mg/dL (0.6-1.3)
[2025-01-18] MEDS: METOPROLOL TARTRATE 25MG TABLET PO ONE (23:21)
[2025-01-18] MEDS: SODIUM CHLORIDE 0.9% 1,000 ML IV ONE (23:46)
[2025-01-19] VITALS (7 sets, daily range): BP systolic 99–119; BP diastolic 66–85; PULSE 75–109; RESP 17–18; TEMP 36.3–37.1; O2SAT 96–99
[2025-01-19 00:33] LABS: CLARITY URINE TURBID (CLEAR); COLOR URINE ORANGE (YELLOW); GLUCOSE URINE NEGATIVE (NEGATIVE); KETONES URINE NEGATIVE (NEGATIVE); LEUKOCYTE ESTERASE URINE 1+ (NEGATIVE); NITRITE URINE POSITIVE (NEGATIVE); OCCULT BLOOD URINE NEGATIVE (NEGATIVE); PROTEIN URINE 1+ (NEGATIVE); SPECIFIC GRAVITY URINE 1.033 (1.005-1.030)
[2025-01-19 01:07] LABS: RBC URINE 0-2 /hpf (0-2); SQUAMOUS EPITHELIAL CELL URINE FEW /lpf (RARE/1+); WBC URINE 0-2 /hpf (0-2)
[2025-01-19 01:08] LABS: BACTERIA URINE 4+; HYALINE CASTS URINE 0-5 /lpf
[2025-01-19 07:08] LABS: HEPATITIS B SURFACE ANTIGEN NEGATIVE (Negative)
[2025-01-19 07:29] LABS: HEPATITIS C AB NON REACTIVE (Neg) (Negative)
[2025-01-19] MEDS ORDERED: ENOXAPARIN 40MG/0.4ML SYR SUBCUT SCH (09:00)
[2025-01-19] MEDS: LEVETIRACETAM 500MG TABLET PO SCH (09:31)
[2025-01-19] MEDS: METOPROLOL SUCCINATE 50MG ER TABLET PO SCH (09:31)
[2025-01-19] MEDS: AMIODARONE 200MG TABLET PO SCH (09:32)
[2025-01-19 12:23] LABS: PLATELET 43 x1000/uL (130-400)
[2025-01-19 16:58] LABS: *AMPHETAMINES SCREEN URINE NEGATIVE (NEGATIVE); *BARBITURATES SCREEN URINE NEGATIVE (NEGATIVE); *BENZODIAZEPINES SCREEN URINE NEGATIVE (NEGATIVE); *COCAINE SCREEN URINE NEGATIVE (NEGATIVE); CANNABINOID URINE SCREEN NEGATIVE (NEGATIVE); METHADONE URINE SCREEN NEGATIVE (NEGATIVE); OPIATES URINE SCREEN NEGATIVE (NEGATIVE); PHENCYCLIDINE URINE SCREEN NEGATIVE (NEGATIVE)
[2025-01-19 16:59] LABS: ECSTASY MDMA SCREEN URINE NEGATIVE (NEGATIVE)
[2025-01-19 18:49] LABS: ALANINE AMINOTRANSFERASE 73 IU/L (10-49); ALBUMIN 4.2 g/dL (3.2-4.8); ASPARTATE AMINOTRANSFERASE 113 IU/L (<34); BILIRUBIN DIRECT 1.8 mg/dL (<=3.0); BILIRUBIN TOTAL 4.7 mg/dL (0.1-1.0); PROTEIN TOTAL 7.4 g/dL (6.0-8.3)
[2025-01-19] MEDS: PANTOPRAZOLE SODIUM 40 MG/VIAL IV SCH (21:15)
[2025-01-20] VITALS: BP_SYST 111; BP_SYST 96; BP_DIAS 48; BP_DIAS 69; PULSE 61; PULSE 86; RESP 18; RESP 20; TEMP 36.2; TEMP 36.4; O2SAT 93; O2SAT 97
[2025-01-20 04:00] VITALS: BP 108/72; PULSE 82; RESP 18; TEMP 36.8; O2SAT 99
[2025-01-20 06:56] LABS: CHLORIDE 98 mEq/L (98-107); POTASSIUM 3.4 mEq/L (3.5-5.1); SODIUM 133 mEq/L (136-145)
[2025-01-20 06:58] LABS: CARBON DIOXIDE 28 mEq/L (21-32)
[2025-01-20 06:59] LABS: CALCIUM 9.4 mg/dL (8.7-10.4)
[2025-01-20 07:02] LABS: HEMOGLOBIN. 12.9 g/dL (14.0-18.0); MEAN CORPUSCULAR HEMOGLOBIN 30.3 pg (28.0-32.0); MEAN CORPUSCULAR HGB CONC 33.2 g/dL (31.0-37.0); MEAN CORPUSCULAR VOLUME 91.4 fL (80.0-94.0); MEAN PLATELET VOLUME 11.1 fl (7.4-10.4); PLATELET 53 x1000/uL (130-400); RED BLOOD CELL COUNT 4.26 mill/uL (4.7-6.1); RED CELL DISTRIBUTION WIDTH 17.4 % (11.6-14.6); WHITE BLOOD COUNT 4.8 x1000/uL (4.5-11.0)
[2025-01-20 07:03] LABS: CREATININE 1.5 mg/dL (0.6-1.3); GLUCOSE 162 mg/dL (70-105); UREA NITROGEN BLOOD 30 mg/dL (9-23)
[2025-01-20 07:04] LABS: ALANINE AMINOTRANSFERASE 67 IU/L (10-49)
[2025-01-20 07:05] LABS: ALBUMIN 3.9 g/dL (3.2-4.8); ASPARTATE AMINOTRANSFERASE 92 IU/L (<34)
[2025-01-20 07:06] LABS: PROTEIN TOTAL 6.9 g/dL (6.0-8.3)
[2025-01-20 07:17] LABS: BILIRUBIN TOTAL 2.9 mg/dL (0.1-1.0)
[2025-01-20 07:41] LABS: DIFFERENTIAL COMMENT 1
[2025-01-20 08:00] VITALS: BP 94/66; PULSE 77; RESP 18; TEMP 37.1; O2SAT 98
[2025-01-20 12:00] VITALS: BP 98/65; PULSE 81; RESP 20; TEMP 36.5; O2SAT 98
[2025-01-20 16:00] VITALS: BP 103/79; PULSE 85; RESP 18; TEMP 36.4; O2SAT 97
[2025-01-20] MEDS: POTASSIUM CHLORIDE 20MEQ TABLET SR PO NR (16:30)
[2025-01-20 17:26] LABS: NUCLEATED RED BLOOD CELLS 3 /100 WBC; PLATELET ESTIMATE MARKEDLY DECREASED
[2025-01-20 17:27] LABS: ANISOCYTOSIS 1+
[2025-01-20 18:24] VITALS: BP 103/71; PULSE 85; TEMP 97.4; O2SAT 98
== END 2025-01-20 19:16 | disposition home or self-care (01) | DRG 310 ==
LOC: ER 19:21 → 5WST 01-19 00:09 → ENRESERV 01-19 00:57
PROVIDERS: ADMIT Internal Medicine; ATTEND Internal Medicine
DX: I48.91 Unspecified atrial fibrillation (principal); R56.9 Unspecified convulsions; F10.10 Alcohol abuse, uncomplicated; K70.9 Alcoholic liver disease, unspecified; D69.6 Thrombocytopenia, unspecified; E11.22 Type 2 diabetes mellitus with diabetic chronic kidney disease; E78.00 Pure hypercholesterolemia, unspecified; Y90.9 Presence of alcohol in blood, level not specified; I12.9 Hypertensive chronic kidney disease with stage 1 through stage 4 chronic kidney disease, or unspecified chronic kidney disease; K76.0 Fatty (change of) liver, not elsewhere classified; N18.9 Chronic kidney disease, unspecified; Z79.899 Other long term (current) drug therapy
CPT/HCPCS: 36415; 71045; 76705; 80048; 80076; 80305; 80320; 81003; 84484; 85025; 86705; 87340; 93005; 99285; J2470; J7030; G0480